=== PATIENT | male | born 1935 | race Caucasian/White ===

== ENCOUNTER → 2016-10-04 | Outpatient (CLI) | payer OTHER, MEDICARE ==
[~2016-10-04] MED LIST: ATOR-24 PO; CALCTAB5 PO; FLM4 PO; MULT-506 PO; NRV5 PO; OMG3 PO; PLV75 PO
== END | disposition home or self-care (01) ==
LOC: C.LABPVFM 11:31
PROVIDERS: ATTEND Urology
DX: C61 Malignant neoplasm of prostate (principal)

== ENCOUNTER → 2016-12-19 | Outpatient (CLI) | payer OTHER, MEDICARE ==
[2016-12-20 06:24] LABS: ESTIMATED AVERAGE GLUCOSE 134 mg/dl; HA1C FLAG Normal (Normal)
== END | disposition home or self-care (01) ==
LOC: C.LABPVFM 11:34
PROVIDERS: ATTEND Family Medicine
DX: I12.9 Hypertensive chronic kidney disease with stage 1 through stage 4 chronic kidney disease, or unspecified chronic kidney disease (principal); E78.5 Hyperlipidemia, unspecified; E83.42 Hypomagnesemia; I71.9 Aortic aneurysm of unspecified site, without rupture; N18.3 Chronic kidney disease, stage 3 (moderate); E11.22 Type 2 diabetes mellitus with diabetic chronic kidney disease

== ENCOUNTER → 2017-01-31 | Outpatient (CLI) | payer OTHER, MEDICARE ==
[2017-01-31 12:30] LABS: URINE APPEARANCE CLEAR (CLEAR); URINE BILIRUBIN NEG (NEG); URINE COLOR YELLOW; URINE NITRITE NEG (NEG); URINE SPECIFIC GRAVITY 1.018 (1.000-1.030); UROBILINOGEN NEG (NEG)
[2017-01-31 12:42] LABS: MANUAL MICROSCOPIC REQUIRED? NO; REVIEW REQ? NO
[2017-01-31 13:07] LABS: BLOOD UREA NITROGEN 29 mg/dl (7-18); BUN/CREATININE RATIO 19.3 (10-20); CARBON DIOXIDE 27 mmol/L (21-32); CHLORIDE 106 mmol/L (98-107); GLUCOSE 77 mg/dl (70-99); PHOSPHORUS 3.4 mg/dl (2.5-4.9); POTASSIUM 3.9 mmol/L (3.5-5.1); SODIUM 141 mmol/L (136-145)
[2017-01-31 13:08] LABS: CALCIUM 8.8 mg/dl (8.5-10.1)
[2017-01-31 14:00] LABS: CHOLESTEROL/HDL RATIO 3.3
== END | disposition home or self-care (01) ==
LOC: C.LABPVFM 10:34
PROVIDERS: ATTEND Internal Medicine Nephrology
DX: N18.3 Chronic kidney disease, stage 3 (moderate) (principal); I71.9 Aortic aneurysm of unspecified site, without rupture; E11.29 Type 2 diabetes mellitus with other diabetic kidney complication; E78.5 Hyperlipidemia, unspecified; I12.9 Hypertensive chronic kidney disease with stage 1 through stage 4 chronic kidney disease, or unspecified chronic kidney disease; E83.42 Hypomagnesemia

== ENCOUNTER → 2017-05-22 | Outpatient (CLI) | payer OTHER, MEDICARE ==
[2017-05-22 18:16] LABS: HEMATOCRIT 39.2 % (42-52)
[2017-05-22 18:34] LABS: BLOOD UREA NITROGEN 28 mg/dl (7-18); BUN/CREATININE RATIO 14.9 (10-20); CALCIUM 8.6 mg/dl (8.5-10.1); CARBON DIOXIDE 26 mmol/L (21-32); CHLORIDE 102 mmol/L (98-107); GLUCOSE 99 mg/dl (70-99); POTASSIUM 3.6 mmol/L (3.5-5.1); SODIUM 137 mmol/L (136-145)
[2017-05-22 18:35] LABS: PHOSPHORUS 3.7 mg/dl (2.5-4.9)
[2017-05-22 18:44] LABS: THYROID STIMULATING HORMONE 0.659 uIu/ml (0.300-4.500)
[2017-05-23 06:03] LABS: ESTIMATED AVERAGE GLUCOSE 131 mg/dl; HA1C FLAG Normal (Normal)
--- NOTE | 2017-05-29 09:46 | CODING QUERY MEDICAL NECESSITY ---
SUPPORTING DIAGNOSIS NEEDED Dr. Mendoza, A supporting diagnosis is required for the test/procedure performed on this patient in order for us to be reimbursed by the patient's insurance. Please provide a supporting diagnosis for the following test/procedure listed below next to the test name along with your signature. *If there is no additional diagnosis for this patient that would support the following test/procedure please document that below next to the test/procedure. Test(s)/Procedure(s) that require a supporting diagnosis: * ([id number]) B12 VITAMIN LEVEL DIAGNOSIS: DATE OF SERVICE: 05/22/17 Provider Signature: Date: Thank you Mikey [facility] Information Management Once completed, please kindly fax back to [phone] For questions please call [phone]
== END | disposition home or self-care (01) ==
LOC: C.LABPVFM 14:15
PROVIDERS: ATTEND Internal Medicine Nephrology
DX: I12.9 Hypertensive chronic kidney disease with stage 1 through stage 4 chronic kidney disease, or unspecified chronic kidney disease (principal); N18.3 Chronic kidney disease, stage 3 (moderate); E11.29 Type 2 diabetes mellitus with other diabetic kidney complication; N28.9 Disorder of kidney and ureter, unspecified

== ENCOUNTER → 2017-05-24 | Outpatient (CLI) | payer OTHER, MEDICARE ==
[2017-05-24 15:08] LABS: URINE APPEARANCE CLEAR (CLEAR); URINE BILIRUBIN NEG (NEG); URINE COLOR YELLOW; URINE NITRITE NEG (NEG); URINE SPECIFIC GRAVITY 1.017 (1.000-1.030); UROBILINOGEN NEG (NEG); ZZUR CULT IF INDIC CLEAN CATCH NO
[2017-05-24 15:16] LABS: MANUAL MICROSCOPIC REQUIRED? NO; REVIEW REQ? NO
== END | disposition home or self-care (01) ==
LOC: C.LAB1850 13:45
PROVIDERS: ATTEND Internal Medicine Nephrology
DX: N17.9 Acute kidney failure, unspecified (principal); N18.3 Chronic kidney disease, stage 3 (moderate)

== ENCOUNTER → 2017-05-29 | Outpatient (CLI) | payer OTHER, MEDICARE ==
[2017-05-29 17:54] LABS: BLOOD UREA NITROGEN 36 mg/dl (7-18); BUN/CREATININE RATIO 19.1 (10-20); CALCIUM 8.5 mg/dl (8.5-10.1); CARBON DIOXIDE 24 mmol/L (21-32); CHLORIDE 108 mmol/L (98-107); GLUCOSE 79 mg/dl (70-99); POTASSIUM 4.2 mmol/L (3.5-5.1); SODIUM 140 mmol/L (136-145)
== END | disposition home or self-care (01) ==
LOC: C.LABPVFM 12:36
PROVIDERS: ATTEND Internal Medicine Nephrology
DX: N17.9 Acute kidney failure, unspecified (principal)

== ENCOUNTER → 2017-08-08 | Outpatient (CLI) | payer OTHER, MEDICARE ==
[2017-08-08 18:47] LABS: BLOOD UREA NITROGEN 28 mg/dl (7-18); BUN/CREATININE RATIO 19.9 (10-20); CALCIUM 8.7 mg/dl (8.5-10.1); CARBON DIOXIDE 26 mmol/L (21-32); CHLORIDE 106 mmol/L (98-107); CREATININE 1.41 mg/dl (0.60-1.40); GLUCOSE 93 mg/dl (70-99); PHOSPHORUS 3.3 mg/dl (2.5-4.9); POTASSIUM 4.1 mmol/L (3.5-5.1); SODIUM 139 mmol/L (136-145)
== END | disposition home or self-care (01) ==
LOC: C.LABPVFM 11:14
PROVIDERS: ATTEND Internal Medicine Nephrology
DX: N18.3 Chronic kidney disease, stage 3 (moderate) (principal)

== ENCOUNTER → 2017-09-06 | Outpatient (CLI) | payer OTHER, MEDICARE ==
--- NOTE | 2017-09-06 09:02 | DIAGNOSTIC IMAGING REPORT ---
ULTRASOUND OF THE ABDOMINAL AORTA CLINICAL HISTORY: Abdominal aortic aneurysm. COMPARISON STUDY: Ultrasound of the abdominal aorta dated 08/16/2016. TECHNIQUE: Multiple persaud scale, color Doppler, and spectral Doppler sonograms of the abdominal aorta and iliac arteries are performed. Images are reviewed in the transverse and longitudinal planes. FINDINGS: There is moderate to advanced atherosclerotic calcification and irregularity noted throughout the abdominal aorta. The proximal abdominal aorta measures 3.0 x 3.0 cm (AP times transverse) and the mid abdominal aorta measures 2.4 x 2.4 cm. There is a fusiform aneurysm of the distal abdominal aorta which measures 4.1 x 4.2 cm. The right common iliac artery measures up to 1.6 cm and there is ectasia of the left common iliac artery which measures up to 2.0 cm. Normal flow and spectral Doppler waveforms are seen within the abdominal aorta. Velocities in the abdominal aorta measure up to 66 cm/s. IMPRESSION: There has been no significant change in the appearance of a fusiform aneurysm of the distal abdominal aorta which measures up to 4.1 x 4.2 cm (previously measured 4.1 x 3.7 cm) as compared to 08/16/2016. Electronically signed by: Pelon Murillo M.D. 09/06/2017 9:00 AM Dictated Date/Time: 09/06/2017 8:59 AM
== END | disposition home or self-care (01) ==
LOC: C.ULTR 08:23
PROVIDERS: ATTEND Family Medicine
DX: I71.9 Aortic aneurysm of unspecified site, without rupture (principal)

== ENCOUNTER 2017-11-22 11:08 | Emergency (ER) | payer OTHER, MEDICARE ==
[~2017-11-22] VITALS: Ht 172.7 cm; Wt 102.1 kg
[2017-11-22 11:19] VITALS: TEMP 36.9; Ht 172.7 cm; Wt 102.1 kg
--- NOTE | 2017-11-22 12:04 | EMERGENCY ROOM VISIT NOTE ---
History Report prepared by Amalia: Raulito Robin Under the Supervision of: Dr. Justina Go D.O. First contact with patient: 11:47 Chief Complaint: LEG PAIN,LEG INJURY Stated Complaint: RIGHT LEG PAIN History of Present Illness The patient is an 82 year old male who presents to the Emergency Room with complaints of worsening intermittent right groin pain that started 3 to 4 days ago. He states that the pain has been getting gradually worse and is sharp, and he has been having difficulty lifting his right leg. He notes that moving his right leg brings on the pain. The patient states that he does not feel a bulge in the groin area. He says that he could not sleep last night due to the pain, and has not been taking any medications for the pain. The patient states that there was no known injury to the area. He notes no history of a hernia, and has never had anything like this pain before. The patient states that he still has all his major abdominal organs. He notes no recent medication changes. He denies any fevers, chills, back pain, nausea, recent cough, cold symptoms, appetite changes, abdominal pain, testicle pain, scrotal swelling, bowel movement changes, or urinary symptoms. He also denies any recent changes to his activity. Source of History: patient Onset: 3 to 4 days ago Position: other (groin - right) Quality: sharp, other (pain) Timing: intermittent, worsening Modifying Factors (Worsening): movement Associated Symptoms: No fevers, No chills, No cough (or cold symptoms), No nausea, No abdominal pain, No urinary symptoms (or bowel movement changes) Note: Difficulty raising right leg. Denies appetite changes, scrotal swelling, testicle pain. Review of Systems See HPI for pertinent positives & negatives. A total of 10 systems reviewed and were otherwise negative. Past Medical & Surgical Medical Problems: (1) Acute renal failure (2) Diabetes (3) Diplopia (4) HLD (hyperlipidemia) (5) HTN (hypertension) Surgical Problems: (1) H/O angioplasty Family History Patient reports no known family medical history. Social History Smoking Status: Former Smoker Alcohol Use: none Drug Use: none Marital Status: Housing Status: lives with significant other Occupation Status: retired Current/Historical Medications Scheduled Amlodipine Besylate (Amlodipine Besylate), 5 MG PO DAILY Atorvastatin (Lipitor), 40 MG PO DAILY Clopidogrel (Plavix), 75 MG PO DAILY Fish Oil ([place]-3), 1 CAP PO DAILY Fosinopril Sodium (Fosinopril Sodium), 10 MG PO DAILY Insulin Detemir (Levemir Flextouch), 50 UNITS SC QPM Insulin Lispro (Human) (Humalog Kwikpen), 20-25 UNITS SC WM Multivitamin (Multivitamin), 1 TAB PO DAILY Tamsulosin HCl (Tamsulosin HCl), 0.4 MG PO DAILY Allergies Coded Allergies: No Known Allergies (Unverified , 10/14/15) Physical Exam Vital Signs Date Time Temp Pulse Resp B/P (MAP) Pulse Ox O2 Delivery O2 Flow Rate FiO2 11/22/17 16:16 82 20 132/78 99 11/22/17 14:15 83 18 168/83 96 Room Air 11/22/17 13:15 86 20 168/83 97 Room Air 11/22/17 11:19 36.9 85 20 123/78 96 Room Air Physical Exam GENERAL: alert, well appearing, well nourished, no distress, non-toxic EYE EXAM: normal conjunctiva, PERRL and EOM's grossly intact OROPHARYNX: no exudate, no erythema, lips, buccal mucosa, and tongue normal and mucous membranes are moist NECK: supple, no nuchal rigidity, no adenopathy, non-tender LUNGS: Clear to auscultation. Normal chest wall mechanics HEART: no murmurs, S1 normal and S2 normal ABDOMEN: obese, abdomen soft, non-tender, normo-active bowel sounds, no rebound or guarding. No obvious mass or hernia. No reproducible right lower quadrant or right inguinal tenderness. : Circumcised, bilaterally descended testicles, no scrotal edema. BACK: Back is symmetrical on inspection and there is no deformity, no midline tenderness, no CVA tenderness. SKIN: no rashes and no bruising UPPER EXTREMITIES: upper extremities are grossly normal. LOWER EXTREMITIES: No pitting edema. Decreased range of motion at right hip secondary to pain. NEURO EXAM: Normal sensorium, cranial nerves II-XII grossly intact, normal speech, no gross weakness of arms, no gross weakness of legs. Medical Decision & Procedures ER Provider Diagnostic Interpretation: CT:Per my review, radiologist interpretation. CT ABD/PELVIS IV CONTRAST ONLY CLINICAL HISTORY: Right lower quadrant abdominal pain COMPARISON STUDY: None. TECHNIQUE: Following the IV administration of 117 mL of Optiray-320, CT scan of the abdomen and pelvis was performed from the lung bases to the proximal femurs. Images are reviewed in the axial, sagittal, and coronal planes. IV contrast was administered without complication. A dose lowering technique was utilized adhering to the principles of ALARA. CT DOSE: 913.63 mGycm FINDINGS: Lower chest: There is a small hiatal hernia Liver: The contrast-enhanced liver is normal in size, contour, and attenuation. There is no intrahepatic biliary ductal dilatation. The hepatic veins and portal veins are patent. Gallbladder: Unremarkable. Spleen: Normal in size and attenuation. Pancreas: Unremarkable. Adrenal glands: There is mild left adrenal gland thickening. Kidneys: There are bilateral renal hypodensities measuring up to 1 cm. These likely represent cysts. There is left-sided hydronephrosis and hydroureter. There is an obstructing 6 mm calculus at the level the left ureterovesical junction. Bowel: There are no transition zones indicate bowel obstruction. There is mild fecal retention. There is no evidence of acute diverticulitis. There is no evidence of acute appendicitis. Peritoneum: There is no free air. There is no ascites. There is a small fat-containing umbilical hernia. There is a small fat-containing right inguinal hernia. Vasculature: There are moderately extensive atheromatous calcifications present. There is an infrarenal abdominal aortic aneurysm measuring 46 x 34 mm. There is an equivocal short segment dissection within the infrarenal abdominal aorta Adenopathy: None. Pelvic viscera: There is mild prostamegaly. Skeletal structures: No destructive osseous lesions are seen. IMPRESSION: 1. 6 mm obstructing calculus at the level of the left ureterovesical junction with secondary hydroureteronephrosis 2. No evidence of bowel obstruction. No evidence of free air 3. No evidence of acute appendicitis. No evidence of acute diverticulitis 4. Extensive atheromatous change. 46 x 34 mm infrarenal abdominal aortic aneurysm. 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 11/22/2017 2:17 PM Dictated Date/Time: 11/22/2017 2:12 PM Laboratory Results 11/22/17 12:25 Red Blood Count 4.25, Mean Corpuscular Volume 89.6, Mean Corpuscular Hemoglobin 29.6, Mean Corpuscular Hemoglobin Concent 33.1, Mean Platelet Volume 9.1, Neutrophils (%) (Auto) 77.8, Lymphocytes (%) (Auto) 11.7, Monocytes (%) (Auto) 7.3, Eosinophils (%) (Auto) 2.6, Basophils (%) (Auto) 0.3, Neutrophils # (Auto) 9.11, Lymphocytes # (Auto) 1.37, Monocytes # (Auto) 0.85, Eosinophils # (Auto) 0.31, Basophils # (Auto) 0.03 11/22/17 12:25 Test 11/22/17 12:25 11/22/17 14:12 White Blood Count 11.71 K/uL (4.8-10.8) Red Blood Count 4.25 M/uL (4.7-6.1) Hemoglobin 12.6 g/dL (14.0-18.0) Hematocrit 38.1 % (42-52) Mean Corpuscular Volume 89.6 fL (80-100) Mean Corpuscular Hemoglobin 29.6 pg (25-34) Mean Corpuscular Hemoglobin Concent 33.1 g/dl (32-36) Platelet Count 175 K/uL (130-400) Mean Platelet Volume 9.1 fL (7.4-10.4) Neutrophils (%) (Auto) 77.8 % Lymphocytes (%) (Auto) 11.7 % Monocytes (%) (Auto) 7.3 % Eosinophils (%) (Auto) 2.6 % Basophils (%) (Auto) 0.3 % Neutrophils # (Auto) 9.11 K/uL (1.4-6.5) Lymphocytes # (Auto) 1.37 K/uL (1.2-3.4) Monocytes # (Auto) 0.85 K/uL (0.11-0.59) Eosinophils # (Auto) 0.31 K/uL (0-0.5) Basophils # (Auto) 0.03 K/uL (0-0.2) RDW Standard Deviation 46.4 fL (36.4-46.3) RDW Coefficient of Variation 14.2 % (11.5-14.5) Immature Granulocyte % (Auto) 0.3 % Immature Granulocyte # (Auto) 0.04 K/uL (0.00-0.02) Prothrombin Time 10.5 SECONDS (9.0-12.0) Prothromb Time International Ratio 1.0 (0.9-1.1) Anion Gap 5.0 mmol/L (3-11) Est Creatinine Clear Calc Drug Dose 43.2 ml/min Estimated GFR () 47.2 Estimated GFR (Non- 40.7 BUN/Creatinine Ratio 16.6 (10-20) Calcium Level 8.7 mg/dl (8.5-10.1) Total Bilirubin 0.3 mg/dl (0.2-1) Aspartate Amino Transf (AST/SGOT) 12 U/L (15-37) Alanine Aminotransferase (ALT/SGPT) 20 U/L (12-78) Alkaline Phosphatase 124 U/L (45-117) Total Protein 7.2 gm/dl (6.4-8.2) Albumin 3.4 gm/dl (3.4-5.0) Globulin 3.8 gm/dl (2.5-4.0) Albumin/Globulin Ratio 0.9 (0.9-2) Urine Color YELLOW Urine Appearance CLEAR (CLEAR) Urine pH 5.0 (4.5-7.5) Urine Specific [place] 1.023 (1.000-1.030) Urine Protein NEG (NEG) Urine Glucose (UA) NEG (NEG) Urine Ketones NEG (NEG) Urine Occult Blood 3+ (NEG) Urine Nitrite NEG (NEG) Urine Bilirubin NEG (NEG) Urine Urobilinogen NEG (NEG) Urine Leukocyte Esterase NEG (NEG) Urine WBC (Auto) 1-5 /hpf (0-5) Urine RBC (Auto) >30 /hpf (0-4) Urine Hyaline Casts (Auto) 0 /lpf (0-5) Urine Epithelial Cells (Auto) 5-10 /lpf (0-5) Urine Bacteria (Auto) NEG (NEG) Laboratory results per my review. Medications Administered Medications (Trade) Dose Ordered Sig/Christa Route Start Time Stop Time Status Last Admin Dose Admin Sodium Chloride 500 ml @ 999 mls/hr Q31M STAT IV 11/22/17 12:13 11/22/17 12:43 DC 11/22/17 12:13 999 MLS/HR Acetaminophen (Tylenol Tab) 1,000 mg NOW STAT PO 11/22/17 15:21 11/22/17 15:22 DC 11/22/17 15:31 1,000 MG ECG Per My Interpretation Indication: weakness Rate (beats per minute): 75 Rhythm: normal sinus Findings: RBBB, no acute ischemic change, left axis deviation, no ectopy ED Course 1153: The patient was evaluated in room C9. A complete history and physical exam was performed. 1213: NSS 500 ml @ 999 mls/hr IV. 1220: I reviewed the past medical records of the patient, including a review of his PCP evaluation earlier today. The records were sent in. 1505: I reevaluated the patient and his pain is slightly less, but is still coming and going, and is still worse with movement. I updated him on the results. He says that he is aware of the AAA that was seen on CT and he is aware of that and that is old. 1521: Tylenol Tab 1000 mg PO. 1530: Flomax Cap 0.4 mg PO. 1600: Upon reevaluation, the patient is feeling better. I discussed the findings and the treatment plan with the patient. He verbalizes agreement and understanding. He was discharged home. Medical Decision Differential diagnoses includes but is not limited to gastritis, peptic ulcer disease, GERD, gallbladder disease, pancreatitis, small bowel obstruction, acute coronary syndrome, pericarditis, ischemic bowel, irritable bowel disease, irritable bowel syndrome, appendicitis, diverticulitis, malignancy, hernia, urinary tract infection, torsion, perforation, trauma, infectious. Pt well appearing here despite complaint. Labs and imaging reassuring. Pt stated AAA/dissection old and being followed as outpt. Discussed fat containing hernia on right possibly being the etiology of his pain. Also discussed left sided kidney stone. Pt without any left flank/back pain recently. States has some chronic back pain but no recent changes. No change in urine. Doubt occult infection. Labs and UA reassuring. Hematuria noted, likely from stone. Creatinine appears consistent with prior levels. Pt felt improved with tylenol here. Takes flomax daily already. Has a urologist, advised to f/u with him regarding stone and atypical presentation. DIscussed f/ u regarding fat containing hernia. Discussed sx to watch/return for, he and verbalized understanding. Pt well appearing at pr, ambulating with a steady gait. Pt offered additional pain medication and he declined. No n/v. I do not suspect other acute pathology at this time. Medication Reconcilliation Current Medication List: was personally reviewed by me Blood Pressure Screening Patient's blood pressure: Normal blood pressure Impression Primary Impression: Ureterolithiasis Additional Impressions: Hernia Right inguinal pain Scribe Attestation The scribe's documentation has been prepared under my direction and personally reviewed by me in its entirety. I confirm that the note above accurately reflects all work, treatment, procedures, and medical decision making performed by me. Departure Information Dispostion Home / Self-Care Referrals Johnson Blanc M.D. (PCP) Patient Instructions My [facility] Additional Instructions Please call and follow-up with your family doctor regarding the abdominal pain. Please also follow-up with your urologist regarding the kidney stone noted on the CAT scan. He may use Tylenol as needed for pain. Please continue taking her Flomax daily. If you have any worsening pain, are unable to walk, develop fevers or chills, dizziness, vomiting, or unable to urinate, noticed blood in your urine, noticed a change in your bowel movements, you have any other new concerns, please return the emergency room. Problem Qualifiers
[2017-11-22] MEDS ORDERED: SODIUM CHLORIDE 0.9% 500ML 500 ML IV STA (12:13)
[2017-11-22] MEDS ORDERED: OPTIRAY 320 IV PRN (12:30)
[2017-11-22] MEDS ORDERED: OMEG10007 PO (12:37)
[2017-11-22] MEDS ORDERED: INSU3INJ3 SC (12:37)
[2017-11-22] MEDS ORDERED: FLM4 PO (12:37)
[2017-11-22] MEDS ORDERED: INSU100I2 SC (12:37)
[2017-11-22] MEDS ORDERED: [UNRECOGNIZED DRUG - CODE] PO (12:37)
[2017-11-22] MEDS ORDERED: CLOP1TAB15 PO (12:37)
[2017-11-22] MEDS ORDERED: NRV/5 PO (12:37)
[2017-11-22 12:41] LABS: BASO % 0.3 %; BASO ABS # 0.03 K/uL (0-0.2); EOS % 2.6 %; EOS ABS # 0.31 K/uL (0-0.5); HEMATOCRIT 38.1 % (42-52); HEMOGLOBIN 12.6 g/dL (14.0-18.0); IG# 0.04 K/uL (0.00-0.02); LYMPH % 11.7 %; LYMPH ABS # 1.37 K/uL (1.2-3.4); MEAN CELL VOLUME 89.6 fL (80-100); MEAN CORPUSCULAR HEMOGLOBIN 29.6 pg (25-34); MEAN CORPUSCULAR HGB CONC 33.1 g/dl (32-36); MEAN PLATELET VOLUME 9.1 fL (7.4-10.4); MONO % 7.3 %; MONO ABS # 0.85 K/uL (0.11-0.59); NEUT % 77.8 %; NEUT ABS # 9.11 K/uL (1.4-6.5); PLATELET COUNT 175 K/uL (130-400); RED CELL DISTRIBUTION WIDTH CV 14.2 % (11.5-14.5); RED CELL DISTRIBUTION WIDTH SD 46.4 fL (36.4-46.3); WHITE BLOOD COUNT 11.71 K/uL (4.8-10.8)
[2017-11-22 13:00] LABS: ALBUMIN 3.4 gm/dl (3.4-5.0); CALCIUM 8.7 mg/dl (8.5-10.1); CREATININE 1.58 mg/dl (0.60-1.40); POTASSIUM 4.2 mmol/L (3.5-5.1)
[2017-11-22 13:03] LABS: TOTAL PROTEIN 7.2 gm/dl (6.4-8.2)
--- NOTE | 2017-11-22 14:19 | DIAGNOSTIC IMAGING REPORT ---
CT ABD/PELVIS IV CONTRAST ONLY CLINICAL HISTORY: Right lower quadrant abdominal pain COMPARISON STUDY: None. TECHNIQUE: Following the IV administration of 117 mL of Optiray-320, CT scan of the abdomen and pelvis was performed from the lung bases to the proximal femurs. Images are reviewed in the axial, sagittal, and coronal planes. IV contrast was administered without complication. A dose lowering technique was utilized adhering to the principles of ALARA. CT DOSE: 913.63 mGycm FINDINGS: Lower chest: There is a small hiatal hernia Liver: The contrast-enhanced liver is normal in size, contour, and attenuation. There is no intrahepatic biliary ductal dilatation. The hepatic veins and portal veins are patent. Gallbladder: Unremarkable. Spleen: Normal in size and attenuation. Pancreas: Unremarkable. Adrenal glands: There is mild left adrenal gland thickening. Kidneys: There are bilateral renal hypodensities measuring up to 1 cm. These likely represent cysts. There is left-sided hydronephrosis and hydroureter. There is an obstructing 6 mm calculus at the level the left ureterovesical junction. Bowel: There are no transition zones indicate bowel obstruction. There is mild fecal retention. There is no evidence of acute diverticulitis. There is no evidence of acute appendicitis. Peritoneum: There is no free air. There is no ascites. There is a small fat-containing umbilical hernia. There is a small fat-containing right inguinal hernia. Vasculature: There are moderately extensive atheromatous calcifications present. There is an infrarenal abdominal aortic aneurysm measuring 46 x 34 mm. There is an equivocal short segment dissection within the infrarenal abdominal aorta Adenopathy: None. Pelvic viscera: There is mild prostamegaly. Skeletal structures: No destructive osseous lesions are seen. IMPRESSION: 1. 6 mm obstructing calculus at the level of the left ureterovesical junction with secondary hydroureteronephrosis 2. No evidence of bowel obstruction. No evidence of free air 3. No evidence of acute appendicitis. No evidence of acute diverticulitis 4. Extensive atheromatous change. 46 x 34 mm infrarenal abdominal aortic aneurysm. 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 11/22/2017 2:17 PM Dictated Date/Time: 11/22/2017 2:12 PM
[2017-11-22] MEDS ORDERED: ACETAMINOPHEN 500 MG TAB PO STA (15:21)
[2017-11-22] MEDS ORDERED: TAMSULOSIN HCL 0.4 MG CAP PO ONE (15:30)
[2017-11-22 16:16] VITALS: BP 132/78; PULSE 82; O2SAT 99
== END 2017-11-22 16:17 | disposition home or self-care (01) ==
LOC: C.EDB 11:12 → C.EDC 16:17
DX: R10.31 Right lower quadrant pain (principal); N20.1 Calculus of ureter; K44.9 Diaphragmatic hernia without obstruction or gangrene; N17.9 Acute kidney failure, unspecified; E11.9 Type 2 diabetes mellitus without complications; E78.5 Hyperlipidemia, unspecified; I10 Essential (primary) hypertension; Z87.891 Personal history of nicotine dependence; Z79.02 Long term (current) use of antithrombotics/antiplatelets; Z79.899 Other long term (current) drug therapy

== ENCOUNTER → 2018-01-08 | Outpatient (CLI) | payer OTHER, MEDICARE ==
[~2018-01-08] MED LIST changes: -CALCTAB5 PO; +CLOP1TAB15 PO; +INSU100I2 SC; +INSU3INJ3 SC; +NRV/5 PO; -NRV5 PO; +OMEG10007 PO; -OMG3 PO; -PLV75 PO; +[UNRECOGNIZED DRUG - CODE] PO
--- NOTE | 2018-01-08 16:55 | DIAGNOSTIC IMAGING REPORT ---
R HIP UNILATERAL 2 VIEWS, PELVIS 1 OR 2 VIEW ROUTINE CLINICAL HISTORY: Right lower EXTREMITY WEAKNESS, ACUTE LOW BACK PAIN COMPARISON STUDY: None. FINDINGS: No fracture or dislocation within the pelvis or hips. The sacrum appears intact. Vascular calcifications are noted. Cartilage spaces are maintained for age. Moderate to large amount of well-formed stool within the colon. Aneurysmal dilatation of the infrarenal abdominal aorta measuring 4.6 cm in diameter. IMPRESSION: 1. No fracture or dislocation within the pelvis or hips. 2. A 4.6 cm infrarenal abdominal aortic aneurysm. Electronically signed by: Jersey Goldberg M.D. 01/08/2018 4:54 PM Dictated Date/Time: 01/08/2018 4:45 PM
--- NOTE | 2018-01-08 17:12 | DIAGNOSTIC IMAGING REPORT ---
L-SPINE MIN 4 VIEWS ROUTINE CLINICAL HISTORY: 82 years-old Male presenting with ACUTE LOW BACK PAIN, FOOT DROP, ABSENT ANKLE DORSAL FLEXION. TECHNIQUE: Frontal, bilateral oblique, lateral, and coned in lateral views of the lumbar spine were obtained. COMPARISON: CT of the abdomen and pelvis from 11/22/2017. FINDINGS: No scoliosis. Trace anterolisthesis of L4 on L5 and trace anterolisthesis of L5 on S1. Otherwise vertebral bodies maintain normal height and alignment. Mild endplate concavity is at several levels without convincing evidence of a compression deformity. Mild multilevel osteophytosis. Intervertebral disc heights preserved. No radiographic evidence of osseous neural foraminal narrowing. Redemonstration of the heavily calcified abdominal aortic aneurysm at the level of L4. The apparent diameter may be affected by magnification. IMPRESSION: 1. No radiographic evidence of acute osseous injury. 2. Mild degenerative changes without radiographic evidence of osseous neural foraminal narrowing. 3. Abdominal aortic aneurysm. The apparent diameter is likely affected by magnification. Electronically signed by: Wilmer Tolliver M.D. 01/08/2018 5:11 PM Dictated Date/Time: 01/08/2018 5:06 PM
== END | disposition home or self-care (01) ==
LOC: C.RADPV 16:18
PROVIDERS: ATTEND Nurse Practitioner
DX: M47.9 Spondylosis, unspecified (principal); I71.4 Abdominal aortic aneurysm, without rupture; M21.379 Foot drop, unspecified foot

== ENCOUNTER → 2018-01-11 | Outpatient (CLI) | payer OTHER, MEDICARE ==
--- NOTE | 2018-01-11 16:30 | DIAGNOSTIC IMAGING REPORT ---
MRI OF THE LUMBAR SPINE WITHOUT IV CONTRAST CLINICAL HISTORY: Low back pain. Right lower extremity radiculopathy. COMPARISON STUDY: Radiographs of the lumbar spine dated 01/08/2018. Abdominal CT dated 11/22/2017. TECHNIQUE: MRI of the lumbar spine is performed utilizing various T1 and T2-weighted sequences in the axial and sagittal planes. IV contrast was not administered for this examination. FINDINGS: Lumbar spine: Vertebral body height is maintained throughout the lumbar spine. There is minimal anterolisthesis at L4-L5. Alignment is otherwise preserved. No destructive bony lesion is seen. Tiny hemangiomas are seen in the bodies of T12 and L1. The transverse and spinous processes appear intact. There is no evidence of spondylolysis. Intervertebral discs: There is degenerative disc desiccation seen throughout the lumbar spine. No significant loss of height is identified. Paraspinal cord: The visualized spinal cord is normal in morphology and signal intensity. The conus medullaris terminates at the level of L1. The nerve roots of the cauda equina are normal in morphology. L1-L2: Unremarkable. L2-L3: Unremarkable. L3-L4: There is a tiny posterior disc bulge with annular fissure. Mild facet arthropathy is of no consequence. The central canal and neural foramina are widely patent. L4-L5: There is a posterior disc bulge. In conjunction with hypertrophy of the ligamentum flavum there is minimal acquired compromise of the central canal with a minimum AP diameter of 10 mm. There is bilateral subarticular stenosis, right greater than left. The disc bulge abuts the exiting right L4 nerve root as well as the transiting bilateral nerve roots. Bulky facet arthropathy causes mild left greater than right neural foraminal stenosis. Facet arthropathy also impinges on the posterior aspect of the thecal sac bilaterally. L5-S1: There is a small posterior disc bulge eccentric to the left. This causes severe left-sided subarticular stenosis and impinges on the exiting left L5 and the transiting bilateral S1 nerve roots. Facet arthropathy causes moderate left and mild right neural foraminal stenosis. There is no significant acquired compromise of the central canal. Sacrum: The visualized sacrum is normal in morphology and signal intensity. Soft tissues: There is fatty atrophy of the paraspinous musculature. The partially imaged kidneys demonstrate cortical atrophy. There is a small aneurysm of the distal abdominal aorta which is only partially visualized. This is better characterized on the 11/22/[address] The bladder wall is thickened and trabeculated consistent with chronic outlet obstruction. IMPRESSION: 1. There is no large disc herniation or high-grade central canal stenosis. 2. Lumbosacral spondylosis as above, greatest at L4-L5 and L5-S1. See discussion for detailed level by level analysis. 3. No destructive bony lesion is seen. 4. A small infrarenal abdominal aortic aneurysm is partially visualized and is better characterized on the 11/22/[address] Dictated: 01/11/2018 3:56 PM Transcribed: 01/11/2018 4:29 PM [facility] Electronically signed by: Pelon Murillo M.D. 01/11/2018 4:33 PM Dictated Date/Time: 01/11/2018 3:56 PM
== END | disposition home or self-care (01) ==
LOC: C.MRI 14:42
PROVIDERS: ATTEND Nurse Practitioner
DX: M47.817 Spondylosis without myelopathy or radiculopathy, lumbosacral region (principal); R29.898 Other symptoms and signs involving the musculoskeletal system; R10.31 Right lower quadrant pain; M21.379 Foot drop, unspecified foot; I71.4 Abdominal aortic aneurysm, without rupture

== ENCOUNTER → 2018-03-27 | Outpatient (CLI) | payer OTHER, MEDICARE ==
--- NOTE | 2018-03-27 12:58 | DIAGNOSTIC IMAGING REPORT ---
KUB CLINICAL HISTORY: N20.0 Nephrolithiasis COMPARISON STUDY: CT scan dated 11/22/2017 FINDINGS: There is calcification within the abdominal aorta which measures 4.6 cm uncorrected for magnification. There is a 3 mm lower pole left renal calculus. There is mild fecal retention. IMPRESSION: 1. Abdominal aortic aneurysm 2. Left-sided nephrolithiasis 3. Fecal retention Electronically signed by: Juan Antonio Langley M.D. 03/27/2018 12:57 PM Dictated Date/Time: 03/27/2018 12:56 PM
--- NOTE | 2018-03-27 14:10 | DIAGNOSTIC IMAGING REPORT ---
RENAL ULTRASOUND HISTORY: N20.0 Nephrolithiasis COMPARISON: Abdomen and pelvis CT 11/22/2017. FINDINGS: Right kidney: 11.0 cm. No hydronephrosis. Normal corticomedullary differentiation and moderate cortical thinning. Left kidney: 10.9 cm. No hydronephrosis. Normal corticomedullary differentiation and mild to moderate cortical thinning. Bladder: No bladder wall thickening. A right ureteral jet was identified. There is a 7 mm stone at the left ureterovesical junction, unchanged. However, the left ureteral jet persists. IMPRESSION: 1. No hydronephrosis. 2. No change in the nonobstructing 7 mm stone within the left ureterovesical junction. Electronically signed by: Jersey Goldberg M.D. 03/27/2018 2:09 PM Dictated Date/Time: 03/27/2018 2:07 PM
== END | disposition home or self-care (01) ==
LOC: C.ULTR 12:25
PROVIDERS: ATTEND Urology
DX: N20.0 Calculus of kidney (principal)

== ENCOUNTER 2023-03-10 15:20 | Inpatient (IN) ==
--- NOTE | 2023-03-10 15:57 | Emergency Department Note ---
History of Present Illness General Chief complaint: Stroke/CVA Symptoms Stated complaint: FALL, REF BY DOC;DROOPING IN FACE, OFF BALANCE Time Seen by Provider: 03/10/23 15:47 History of Present Illness 87-year-old male presents emergency department with his reportedly had a fall on Monday he did not hit his head and since then he has been dragging his left foot and has a left facial droop. Patient did go to Dr. Harris's office today and was sent for further evaluation of stroke. Patient's had a prior stroke and he describes it as mini strokes in the past. Patient does not know whether he is on any blood thinners currently. Patient denies headache slurred speech he states he is able to eat however has been dragging his left leg and using a walker. There are no other complaints such as chest pain shortness of breath abdominal pain nausea vomiting or back pain. There are no other mitigating or a lleviating factors Home Medications Medication Instructions Recorded Confirmed Type blood-glucose meter ([employer] #1 ea 03/13/19 03/10/23 History Ultra2 Meter) calcium carbonate 600 mg calcium 600 mg PO DAILY 03/13/19 03/10/23 History (1,500 mg) tablet (Calcium) syringe with needle 3 mL 25 x 5/8" #6 ea 12/03/21 03/10/23 Rx (BD Luer-Frank Syringe) insulin lispro 100 unit/mL 20 - 25 unit (0.2 - 0.25 mL) 05/10/22 03/10/23 Rx subcutaneous pen (Humalog KwikPen subcut TID 90 days #90 mL (U-100) Insulin) amlodipine 2.5 mg tablet 2.5 mg PO DAILY #90 tabs 07/11/22 03/10/23 Rx clopidogrel 75 mg tablet 75 mg PO DAILY #90 tabs 07/11/22 03/10/23 Rx cholecalciferol (vitamin D3) 125 125 mcg PO DAILY 09/29/22 03/10/23 History mcg (5,000 unit) capsule blood sugar diagnostic #200 ea 10/03/22 03/10/23 Rx pen needle, diabetic 31 gauge x #200 ea 10/03/22 03/10/23 Rx 5/16" (BD Ultra-Fine Short Pen Needle) lancets 30 gauge ([employer] Stixuch Deljhonny #100 ea 10/04/22 03/10/23 Rx Lancets) tamsulosin 0.4 mg capsule 0.4 mg PO DAILY #100 caps 10/05/22 03/10/23 Rx carbidopa 25 mg-levodopa 100 mg 1 tab PO TID #90 tabs 11/11/22 03/10/23 Rx tablet (Sinemet) fosinopril 10 mg tablet 5 mg PO DAILY #45 tabs 01/13/23 03/10/23 Rx atorvastatin 40 mg tablet 40 mg PO DAILY #90 tabs 01/25/23 03/10/23 Rx insulin detemir U-100 100 unit/mL 50 unit subcut HS 03/10/23 03/10/23 History (3 mL) subcutaneous pen Allergies Allergy/AdvReac Type Severity Reaction Status Date / Time No Known Drug Allergies Allergy Unknown Verified 03/10/23 14:29 Past Med/Surg History Medical History Hematuria Stroke Type 2 diabetes mellitus with kidney complication, with long-term current use of insulin Surgical History History of cataract surgery History of intravascular stent placement Hx of excision of epidermal inclusion cyst (05/21/21) Excision right neck cyst in office 05/21/21 Dr. Locke Family History Family/Other Diabetes Hypertension Sister Kidney disease Other Cancer Denies family history of Ovarian cancer Prostate cancer Myocardial infarction Breast cancer Colorectal cancer Social History Smoking Status: Current every day smoker Tobacco Type: Smokeless Tobacco (Dip or Chew) Age Started Using Tobacco: 22; Age Quit Using Tobacco: 52; Second Hand Exposure: No; Do You Dip or Chew Tobacco: Yes; Hx Alcohol Use: No Hx Substance Use: No Preferred Language: Brazilian Communication Ability: Effective Blockman Required: No marital status: Current Living Situation: Spouse current occupational status: retired How many Children do You have: 0 Feels Safe at Home: Yes Childhood Exposure to Second-Hand Smoke: Yes Diet: regular caffeine: Yes Dental Care, Regularly: No Physical Activity Frequency: Does not Exercise Seatbelt Use: sometimes Sunscreen Use: No Review of Systems A total of 10 systems reviewed and were otherwise negative Cardiovascular: no chest pain Gastrointestinal: no abdominal pain Neurologic: + gait abnormality, + falls and + localized weakness; no headache(s) Physical Exam Vital Signs Vital Signs - 24 hr 03/10/23 15:24 03/10/23 16:36 03/10/23 15:32 Temperature 36.3 C L Temperature Source Temporal Artery Scan Pulse Rate 87 73 72 Pulse Rhythm Regular Respiratory Rate 18 16 Respiratory Effort / Characteristics Non-Labored Spontaneous Respiratory Depth Normal Respiratory Pattern Regular Blood Pressure 131/79 Blood Pressure Mean 96 Blood Pressure Position Sitting Pulse Oximetry 99 95 Oxygen Delivery Method Room Air Room Air Sepsis Recent Fever Within 48 Hours No Sepsis New/Unexplained Change in Mental Status N/A Sepsis Action Taken by Nursing No Action Required GENERAL: Patient is awake alert in no acute distress patient is resting comfortably and showing no signs of anxiety EYES: The conjunctivae are clear. The pupils are round and reactive. EARS, NOSE, MOUTH AND THROAT: The nose is without any evidence of any deformity. Mucous membranes are moist. Tongue is midline. Patient has a left-sided facial droop NECK: The neck is nontender and supple. RESPIRATORY: Normal respiratory effort is noted there is no evidence of wheezing rhonchi or rales CARDIOVASCULAR: Regular rate and rhythm noted there no murmurs rubs or gallops normal S1 normal S2. GASTROINTESTINAL: The abdomen is soft. Abdomen is nontender. BACK: No midline tenderness or or step-off noted range of motion in flexion extension as well as rotation no signs of muscle spasm noted MUSCULOSKELETAL/EXTREMITIES: There is no evidence of gross deformity full range of motion is noted in the hips and shoulders. SKIN: There is no obvious evidence of any rash. There are no petechiae, pallor or cyanosis noted. NEUROLOGIC: Patient is awake alert and oriented x3; patient has weakness in the left lower extremity when he lifts against gravity is unable to hold. Patient's NIH is a 4 GCS is 15 Course Reevaluation(s) Reevaluation #1: Patient is resting in no distress on repeat examination. Time: 17:13 Consultations Consultation #1: Case was discussed with Dr Burk at 1014 Time: 17:13 Medical Decision Making Medical Records Attestation: I reviewed the patient's medical records. Home Medications Current Medication List: was personally reviewed by me Laboratory Data Attestation: I reviewed the patient's lab results. Lab work interpreted by me is unremarkable 03/10/23 15:40 03/10/23 15:40 Lab Results 03/10/23 03/10/23 03/10/23 Range/Units 15:40 15:40 15:40 WBC 8.32 (4.8-10.8) K/ul RBC 4.23 L (4.70-6.10) M/uL Hgb 12.7 L (14.0-18.0) g/dl Hct 39.9 L (42.0-52.0) % MCV 94.3 (80.0-100.0) fL MCH 30.0 (25.0-34.0) pg MCHC 31.8 L (32.0-36.0) g/dL RDW Std Deviation 47.3 H (36.4-46.3) fL RDW Coeff of Josr 13.7 (11.5-14.5) % Plt Count 155 (130-400) K/uL MPV 9.8 (9.4-12.4) fL PT 11.3 (9.0-12.0) Seconds INR 1.0 (0.9-1.1) APTT 27.7 (21.0-31.0) Seconds PTT Ratio 1.0 Sodium 141 (136-145) mmol/L Potassium 4.2 (3.5-5.1) mmol/L Chloride 106 (98-107) mmol/L Carbon Dioxide 29 (21-32) mmol/L Anion Gap 6 (3-11) BUN 32 H (6-23) mg/dl Creatinine 1.30 (0.6-1.4) mg/dl Est Cr Clr Drug Dosing 44.8 ml/min Est GFR ( Amer) 57.7 ml/min Est GFR (Non-Af Amer) 49.8 ml/min BUN/Creatinine Ratio 24.6 H (10-20) Glucose 104 H (70-99(Fasting)) mg/dl Calcium 9.3 (8.6-10.3) mg/dl Magnesium 2.1 (1.7-2.4) mg/dl Total Bilirubin 0.4 (0.2-1.0) mg/dl AST 15 (13-39) U/L ALT 3 L (7-52) U/L Alkaline Phosphatase 88 (34-104) U/L Total Protein 7.4 (6.0-8.3) gm/dl Albumin 4.3 (3.4-5.0) gm/dl Globulin 3.1 (2.5-4.0) gm/dl Albumin/Globulin Ratio 1.4 (0.9-2) SARS-CoV-2, RNA, NAAT (NEGATIVE) 03/10/23 Range/Units 16:09 WBC (4.8-10.8) K/ul RBC (4.70-6.10) M/uL Hgb (14.0-18.0) g/dl Hct (42.0-52.0) % MCV (80.0-100.0) fL MCH (25.0-34.0) pg MCHC (32.0-36.0) g/dL RDW Std Deviation (36.4-46.3) fL RDW Coeff of Josr (11.5-14.5) % Plt Count (130-400) K/uL MPV (9.4-12.4) fL PT (9.0-12.0) Seconds INR (0.9-1.1) APTT (21.0-31.0) Seconds PTT Ratio Sodium (136-145) mmol/L Potassium (3.5-5.1) mmol/L Chloride (98-107) mmol/L Carbon Dioxide (21-32) mmol/L Anion Gap (3-11) BUN (6-23) mg/dl Creatinine (0.6-1.4) mg/dl Est Cr Clr Drug Dosing ml/min Est GFR ( Amer) ml/min Est GFR (Non-Af Amer) ml/min BUN/Creatinine Ratio (10-20) Glucose (70-99(Fasting)) mg/dl Calcium (8.6-10.3) mg/dl Magnesium (1.7-2.4) mg/dl Total Bilirubin (0.2-1.0) mg/dl AST (13-39) U/L ALT (7-52) U/L Alkaline Phosphatase (34-104) U/L Total Protein (6.0-8.3) gm/dl Albumin (3.4-5.0) gm/dl Globulin (2.5-4.0) gm/dl Albumin/Globulin Ratio (0.9-2) SARS-CoV-2, RNA, NAAT NEGATIVE (NEGATIVE) Imaging Data Attestation: I personally reviewed and interpreted this imaging study as follows: My Impression: Chest x-ray interpreted by me as negative for infiltrate CT brain interpreted by me is negative for intracranial hemorrhage Radiologist's Impression: Chest X-Ray 03/10/23 15:32 XR chest 1V portable HISTORY: Weakness. stroke alert COMPARISON: Chest 07/01/2019. FINDINGS: No pneumothorax. No pleural effusions. No focal lung consolidations to suggest a pneumonia. No evidence for pulmonary edema. The heart remains top normal in size. There are calcifications within the aortic knob. Degenerative changes again noted within the shoulders. IMPRESSION: No significant change compared to the prior study. No acute process. ACT 112: Negative or not required by law. Electronically signed by: Jersey Goldberg M.D. 03/10/2023 4:[address] 03/10/23 15:[address] DOSE: 625.80 mGy.cm HISTORY: Weakness. Left-sided facial injury. Neuro deficit, acute, stroke suspected TECHNIQUE: Multiaxial CT images of the head were performed without the use of intravenous contrast. Automated exposure control was utilized for this study. A dose lowering technique was utilized adhering to the principles of ALARA. Comparison: Head CT 10/14/2015. Findings: The paranasal sinuses and mastoid air cells are clear. The calvarium and skull base are intact. There is no mass, hematoma, midline shift, acute infarct. White matter hypodensity is nonspecific but suggestive of microvascular ischemic change. The ventricles and sulci demonstrate mild age-related involutional changes. Impression: No acute intracranial abnormality. Atrophy and microvascular ischemic changes. ACT 112: Negative or not required by law. Electronically signed by: Jersey Goldberg M.D. 03/10/2023 4:11 PM ECG Data Attestation: I personally reviewed and interpreted this ECG as follows: Additional Comments: EKG interpreted by me normal sinus rhythm rate of 66 right bundle branch block left anterior hemiblock left axis deviation no obvious ST segment elevation or depression Telemetry was ordered by me, interpreted as normal sinus rhythm rate of 64 MDM Narrative Medical decision making differential diagnosis includes CVA, TIA, intracranial hemorrhage, electrolyte abnormality, neuropathy Plan is to check stroke protocol, patient is out of the for tPA at this time. External medical records were reviewed by me Independent history was provided to me by the patient's at bedside Patient has had symptoms greater than 5 days now, patient is out of the window for tPA, patient had a CT of the brain which is negative, patient will need a in inpatient work-up with neurology and likely MRI. Case was discussed with Dr. Burk for admission Impression & Plan Cerebrovascular accident Discharge Plan Visit Data Chief Complaint: Stroke/CVA Symptoms Stated Complaint: FALL, REF BY DOC;DROOPING IN FACE, OFF BALANCE ED Provider: Anil Wellington Discharge Problem: Cerebrovascular accident Patient Disposition: Admitted As Inpatient Forms Stand Alone Forms: My [facility] Prescriptions Prescriptions: No Action insulin lispro [Humalog KwikPen Insulin] 100 unit/mL insulin pen 20 - 25 unit SQ TID 90 Days Qty: 90 3RF clopidogrel 75 mg tablet 75 mg PO DAILY Qty: 90 3RF amlodipine 2.5 mg tablet 2.5 mg PO DAILY Qty: 90 3RF (DME) blood sugar diagnostic Strip See Dose Instructions .ROUTE .MEDSUPPLY Qty: 200 11RF Rx Instructions: USE ONE STRIP TO CHECK GLUCOSE 3 TIMES DAILY E11.9 (DME) pen needle, diabetic [BD Ultra-Fine Short Pen Needle] 31 gauge x 5/16" needle See Dose Instructions .ROUTE .MEDSUPPLY Qty: 200 3RF Rx Instructions: Use with insulin pen twice daily Dx:E11.9 (DME) lancets [OneTouch Delica Lancets] 30 gauge misc See Rx Instructions .Route Qty: 100 11RF Rx Instructions: Test three times daily carbidopa-levodopa [Sinemet] 25-100 mg tablet 1 tab PO TID Qty: 90 5RF fosinopril 10 mg tablet 5 mg PO DAILY Qty: 45 3RF atorvastatin 40 mg tablet 40 mg PO DAILY Qty: 90 3RF calcium carbonate [Calcium 600] 600 mg calcium (1,500 mg) tablet 600 mg PO DAILY (DME) blood-glucose meter [[employer] Stixuch Ultra2 Meter] misc See Dose Instructions .ROUTE .MEDSUPPLY Qty: 1 Rx Instructions: As directed tamsulosin 0.4 mg capsule 0.4 mg PO DAILY Qty: 100 3RF Rx Instructions: 30 minutes after supper (DME) BD Luer-Frank Syringe 3 mL 25 x 5/8" syringe See Rx Instructions .Route Qty: 6 0RF Rx Instructions: Use with Vitamin B12 injectable solution cholecalciferol (vitamin D3) 125 mcg (5,000 unit) capsule 125 mcg PO DAILY Rx Instructions: Take 5 / 7 days per week Levemir FlexTouch U-100 Insuln 100 unit/mL (3 mL) insulin pen 50 unit subcut HS Referrals Referrals: Keith Yung DO [Primary Care Provider] -
--- NOTE | 2023-03-10 16:12 | CT Scan Report ---
HEAD CT NONCONTRAST CT DOSE: 625.80 mGy.cm HISTORY: Weakness. Left-sided facial injury. Neuro deficit, acute, stroke suspected TECHNIQUE: Multiaxial CT images of the head were performed without the use of intravenous contrast. A utomated exposure control was utilized for this study. A dose lowering technique was utilized adheri ng to the principles of ALARA. Comparison: Head CT 10/14/2015. Findings: The paranasal sinuses and mastoid air cells are clear. The calvarium and skull base are int act. There is no mass, hematoma, midline shift, acute infarct. White matter hypodensity is nonspecifi c but suggestive of microvascular ischemic change. The ventricles and sulci demonstrate mild age-rela nba involutional changes. Impression: No acute intracranial abnormality. Atrophy and microvascular ischemic changes. ACT 112: Negative or not required by law. Electronically signed by: Jersey Goldberg M.D. 03/10/2023 4:11 PM
[2023-03-10 16:30] LABS: Hematocrit (blood only) 39.9 % (42.0-52.0); Hemoglobin 12.7 g/dl (14.0-18.0); Mean Corpuscular Hgb Conc 31.8 g/dL (32.0-36.0); Mean Corpuscular Volume 94.3 fL (80.0-100.0); Mean Platelet Volume 9.8 fL (9.4-12.4); Platelet Count 155 K/uL (130-400); RDW Coefficient of Variation 13.7 % (11.5-14.5); RDW Standard Deviation 47.3 fL (36.4-46.3); Red Blood Count 4.23 M/uL (4.70-6.10); White Blood Count 8.32 K/ul (4.8-10.8)
--- NOTE | 2023-03-10 16:38 | XRay Report ---
XR chest 1V portable HISTORY: Weakness. stroke alert COMPARISON: Chest 07/01/2019. FINDINGS: No pneumothorax. No pleural effusions. No focal lung consolidations to suggest a pneumonia. No evidence for pulmonary edema. The heart remains top normal in size. There are calcifications with in the aortic knob. Degenerative changes again noted within the shoulders. IMPRESSION: No significant change compared to the prior study. No acute process. ACT 112: Negative or not required by law. Electronically signed by: Jersey Goldberg M.D. 03/10/2023 4:36 PM
[2023-03-10 16:43] LABS: Albumin Globulin Ratio 1.4 (0.9-2); Albumin Level 4.3 gm/dl (3.4-5.0); BUN Creatinine Ratio 24.6 (10-20); Bilirubin,Total 0.4 mg/dl (0.2-1.0); Calcium 9.3 mg/dl (8.6-10.3); Creatinine Clr Calc Pharmacy 44.8 ml/min; Est GFR (African American) 57.7 ml/min; Est GFR (Non-African American) 49.8 ml/min; Globulin 3.1 gm/dl (2.5-4.0); Magnesium 2.1 mg/dl (1.7-2.4); Potassium 4.2 mmol/L (3.5-5.1); Total Protein 7.4 gm/dl (6.0-8.3)
[2023-03-10 16:55] LABS: Partial Thromboplastin Time 27.7 Seconds (21.0-31.0); Prothrombin Time 11.3 Seconds (9.0-12.0)
--- NOTE | 2023-03-10 17:53 | History & Physical Report ---
Date of Service March 10, 2023 Assessment & Plan (1) Cerebrovascular accident: Plan: Concern for CVA - symptoms started Monday, would be out of the TPA window - NIH Stroke Scale= 5 - Head CT negative, Brain MRI ordered - Echo with bubble study - PT/OT consult - continue Plavix, will aspirin load with 324mg followed by 81mg daily - already on 40mg atorvastatin - neurology consulted HTN - he is out of the window for permissive HTN - plan to continue his home medications; amlodipine, fosinopril DM2 - Home regimen 50 units Levemir HS, Humalog 20-25 TID - last hemoglobin a1c= 6.4 08/2022-> will repeat with morning labs - Plan to start on 15 units NovoLog BID with SSI correction factor of 20 with a carb ratio of 7 based off insulin calculator HLD - continue statin - lipid panel with morning labs Parkinson's Disease - Continue carbidopa- levodopa Vitamin D Def - continue supplementation BPH - continue tamsulosin Diet: Regular after dysphagia screening VTE prophylaxis: Lovenox Dipso: Med Surg with Tele (2) Facial droop: (3) Left-sided weakness: (4) Parkinsonism: (5) Stage 3b chronic kidney disease: (6) Type 2 DM with CKD stage 3 and hypertension: (7) Dyslipidemia: History of Present Illness Primary Care Provider: Keith Yung DO 87 year old male with a past medical history of DM2, HTN, HLD, CKD stage III, Hyperparathyroidism, CVA, Parkinsonism, AAA, CAD s/p PCI refereed but neurologist after appointment this afternoon. On Tuesday 03/06 he fell while cooking breakfast. Since that he has been dragging his left foot and has had a left sided facial droop. Has been using a walker. Denies headache, slurred speech, neck pain, chest pain, dyspnea. History of prior stroke a few years ago, on Plavix. ED Work-up significant for: CBC, CMP unremarkable. CXR unremarkable. Head CT- without acute intracranial abnormality. Atrophy and microvascular ischemic changes. Allergies Allergy/AdvReac Type Severity Reaction Status Date / Time No Known Drug Allergies Allergy Unknown Verified 03/10/23 14:29 Home Medications Medication Instructions Recorded Confirmed Type blood-glucose meter ([employer] #1 ea 03/13/19 03/10/23 History Ultra2 Meter) calcium carbonate 600 mg calcium 600 mg PO DAILY 03/13/19 03/10/23 History (1,500 mg) tablet (Calcium) syringe with needle 3 mL 25 x 5/8" #6 ea 12/03/21 03/10/23 Rx (BD Luer-Frnak Syringe) insulin lispro 100 unit/mL 20 - 25 unit (0.2 - 0.25 mL) 05/10/22 03/10/23 Rx subcutaneous pen (Humalog KwikPen subcut TID 90 days #90 mL (U-100) Insulin) amlodipine 2.5 mg tablet 2.5 mg PO DAILY #90 tabs 07/11/22 03/10/23 Rx clopidogrel 75 mg tablet 75 mg PO DAILY #90 tabs 07/11/22 03/10/23 Rx cholecalciferol (vitamin D3) 125 125 mcg PO DAILY 09/29/22 03/10/23 History mcg (5,000 unit) capsule blood sugar diagnostic #200 ea 10/03/22 03/10/23 Rx pen needle, diabetic 31 gauge x #200 ea 10/03/22 03/10/23 Rx 5/16" (BD Ultra-Fine Short Pen Needle) lancets 30 gauge (OneTouch Delica #100 ea 10/04/22 03/10/23 Rx Lancets) tamsulosin 0.4 mg capsule 0.4 mg PO DAILY #100 caps 10/05/22 03/10/23 Rx carbidopa 25 mg-levodopa 100 mg 1 tab PO TID #90 tabs 11/11/22 03/10/23 Rx tablet (Sinemet) fosinopril 10 mg tablet 5 mg PO DAILY #45 tabs 01/13/23 03/10/23 Rx atorvastatin 40 mg tablet 40 mg PO DAILY #90 tabs 01/25/23 03/10/23 Rx insulin detemir U-100 100 unit/mL 50 unit subcut HS 03/10/23 03/10/23 History (3 mL) subcutaneous pen Past Med/Surg History Medical History Hematuria Stroke Type 2 diabetes mellitus with kidney complication, with long-term current use of insulin Surgical History History of cataract surgery History of intravascular stent placement Hx of excision of epidermal inclusion cyst (05/21/21) Excision right neck cyst in office 05/21/21 Dr. Locke Family History Family/Other Diabetes Hypertension Sister Kidney disease Other Cancer Denies family history of Ovarian cancer Prostate cancer Myocardial infarction Breast cancer Colorectal cancer Social History Smoking Status: Former smoker Tobacco Type: Smokeless Tobacco (Dip or Chew) Age Started Using Tobacco: 22; Age Quit Using Tobacco: 52; Smoking End Date: 30 years ago; Second Hand Exposure: No; Do You Dip or Chew Tobacco: Yes; Hx Alcohol Use: No Hx Substance Use: No Preferred Language: Upper Sorbian Communication Ability: Effective Environmental Property Assessor Required: No Beliefs That Will Affect Care: None marital status: Current Living Situation: Spouse Current Living Situation Comment: with current occupational status: retired How many Children do You have: 0 Other Information That Helps Us Care for You: No Feels Safe at Home: Yes Safety Concerns: Feels Safe At This Time Childhood Exposure to Second-Hand Smoke: Yes Diet: regular caffeine: Yes Dental Care, Regularly: No Physical Activity Frequency: Does not Exercise Seatbelt Use: sometimes Sunscreen Use: No Assistive Devices: Walker Review of Systems Review of Systems: As per above Physical Exam Physical Exam: Constitutional: well-appearing, no acute distress HEENT: NCAT, no conjunctival injection CV: regular rhythm, no murmur appreciated, extremities well-perfused, no LE edema Resp: CTABL, no wheezes/rales/rhonchi appreciated, no increased work of breathing GI: soft, nondistended, nontender, BS normoactive MSK: no gross deformities appreciated Skin: warm, dry, no rash appreciated Neurologic: normal touch/pain/proprioception and awake Speech / Cognition: normal speech Cranial Nerves: PERRL, EOM intact bilaterally, tongue midline, normal hearing, able to rotate head bilaterally and able to elevate shoulders bilaterally Left sided facial droop, strength left upper/lower extremity 4/5, right 5/5 Results & Data Results & Data Vital Signs (Past 12 Hours) Vital Signs Temp Pulse Resp BP Pulse Ox O2 Del Method 03/10/23 15:32 72 16 95 Room Air 03/10/23 16:36 73 03/10/23 15:24 36.3 C L 87 18 131/79 99 Room Air Supervising Physician Co-Signing Physician Notes I personally saw and examined the patient. I verified all walsh points and agree with resident physician Dr Yady Watson, with the following exceptions and/or additions: 87 year old male presents to the ER with left facial droop, left lower extremity weakness started on Monday. He denies pain in back or left leg. O/E HS RRR, no murmurs, Chest CTAB, mild left facial droop, PERRL, EOMI without diplopia, otherwise CN 2-> 12 intact, No pronator drift or upper extremity weakness on exam, LLE foot drop and hip flexion 3/5, RLE 5/5 throughout A/P Stroke-like symptoms - CT angio head/neck deferred pending MRI brain - if CVA present will defer carotid workup to Neurology. TTE. Consult neurology. Resident Activity Tracking Resident Involvement: Resident Care Provided Care Provided: Adult [facility] Medicine
--- NOTE | 2023-03-10 17:57 | Electrocardiogram Report ---
Test Reason : Blood Pressure : / mmHG Vent. Rate : 066 BPM Atrial Rate : 066 BPM P-R Int : 162 ms QRS Dur : 136 ms QT Int : 450 ms P-R-T Axes : 021 -54 -06 degrees QTc Int : 471 ms Normal sinus rhythm Right bundle branch block Left anterior fascicular block Bifascicular block Abnormal ECG When compared with ECG of 22-NOV-2017 12:39, No significant change was found Confirmed by Kailash Guidry ([id number]) on 03/10/2023 5:56:48 PM Referred By: Keith Yung Confirmed By:Nima Guidry
--- NOTE | 2023-03-10 20:09 | Magnetic Resonance Report ---
Exam(s): MRI HEAD Without Contrast EXAM: MR Head Without Intravenous Contrast CLINICAL HISTORY: Reason for exam: left sided weakness and facial droop. TECHNIQUE: Magnetic resonance images of the head/brain without intravenous contrast in multiple planes. COMPARISON: CT head on 03/10/2023. MRI brain on 11/05/2021. FINDINGS: Brain: Chronic small vessel ischemic disease. No hemorrhage. No restricted diffusion to suggest acute infarct. Ventricles: Prominence of the ventricles and sulci is likely secondary to cerebral volume loss. Bones/joints: Unremarkable. Sinuses: Unremarkable as visualized. No acute sinusitis. Mastoid air cells: Unremarkable as visualized. No mastoid effusion. Orbits: Bilateral lens implants. IMPRESSION: No restricted diffusion to suggest acute infarct. Electronically signed by: Gareth Hebert M.D. 03/10/23 20:08 PM
[2023-03-10] MEDS ORDERED: DEXTROSE 50% 50 ML SYRINGE IV PRN (21:19)
[2023-03-10] MEDS ORDERED: GLUCOSE 10 TAB/TUBE PO PRN (21:19)
[2023-03-10] MEDS ORDERED: PHARMACIST DISCHARGE MED REC CONSULT PRN (21:19)
[2023-03-10] MEDS ORDERED: GLUCAGON FOR INJ 1 MG VIAL SQ PRN (21:19)
[2023-03-10] MEDS ORDERED: ASPIRIN 81 MG CHEW PO ONE (21:19)
[2023-03-10] MEDS ORDERED: CARBOHYDRATES FOR HYPOGLYCEMIA PO PRN (21:19)
[2023-03-10] MEDS ORDERED: GLUCOSE 40% GEL 15 GM TUBE PO PRN (21:19)
[2023-03-10] MEDS ORDERED: LANTUS PER UNIT CHARGE SQ ONE (23:31)
[2023-03-10] MEDS: LANTUS PER UNIT CHARGE SQ SCH (23:32)
[2023-03-10] MEDS ORDERED: ASPIRIN 81 MG CHEW ONE (23:37)
[2023-03-10] MEDS: ENOXAPARIN INJ 40 MG/0.4 ML SYR SQ SCH (23:41)
[2023-03-10] MEDS: CARBIDOPA/LEVODOPA 25/100MG TAB PO SCH (23:42)
[2023-03-10] MEDS: LACTATED RINGER'S 1,000 ML IV SCH (23:46)
[2023-03-10] MEDS: INSULIN ASPART PER UNIT CHARGE SC SCH (23:46)
[2023-03-11 08:24] LABS: Basophils # (auto) 0.04 K/uL (0-0.2); Basophils % (auto) 0.4 %; Eosinophils # (auto) 0.32 K/uL (0-0.50); Eosinophils % (auto) 3.5 %; Hematocrit (blood only) 38.2 % (42.0-52.0); Hemoglobin 12.9 g/dl (14.0-18.0); Immature Granulocytes # (auto) 0.03 K/uL (0.01-0.20); Immature Granulocytes % (auto) 0.3 %; Lymphocytes # (auto) 2.07 K/uL (1.2-3.4); Lymphocytes % (auto) 22.9 %; Mean Corpuscular Hemoglobin 30.5 pg (25.0-34.0); Mean Corpuscular Hgb Conc 33.8 g/dL (32.0-36.0); Mean Corpuscular Volume 90.3 fL (80.0-100.0); Mean Platelet Volume 9.6 fL (9.4-12.4); Monocytes # (auto) 0.73 K/uL (0.11-0.59); Monocytes % (auto) 8.1 %; Neutrophils # (auto) 5.83 K/uL (1.40-6.50); Neutrophils % (auto) 64.8 %; Platelet Count 160 K/uL (130-400); RDW Coefficient of Variation 13.5 % (11.5-14.5); RDW Standard Deviation 44.4 fL (36.4-46.3); Red Blood Count 4.23 M/uL (4.70-6.10); White Blood Count 9.02 K/ul (4.8-10.8)
--- NOTE | 2023-03-11 08:28 | Neurology Consultation ---
Date of Consultation March 11, 2023 Assessment & Plan (1) Parkinsonism: Patient presents with L facial droop and gait disturbance from left leg pain. He is not weak in the L leg, suspect muscular injury potentially secondary to his falls. Facial droop can be seen with hypomimia, unclear baseline. Reassuringly M RI is negative for stroke, symptoms do not localize to the Cspine though MRI C- spine a year ago was unremarkable. Could consider UA as he had similar symptoms with UTI in the past. Otherwise no further neurologic workup, can be discharged per medicine team, please contact us with any further questions. Telehealth Consultation Telehealth Information Telehealth Information: I performed this visit using a real-time telehealth connection between my location and the patients location ([facility]). After connecting through interactive tele-video, patient was identified by name and date of and/or wristband check.Patient (or authorized healthcare rental representative) was informed that this was a telemedicine visit and it was being conducted confidentially over secure lines. My office door was closed and no one else was present in the room with me.Patient (or authorized healthcare rental representative) provided consent to proceed with the visit, expressed an understanding of privacy and security of the telemedicine visit, and gave permission to have a hospital rental representative in the room in order to assist with the visit and to conduct portions of the visit, as needed. I informed the patient (or authorized healthcare rental representative) that I reviewed their record and presented the opportunity for them to ask any questions regarding the visit today. The patient agreed to participate. History of Present Illness Reason for Consultation: L sided weakness Requesting Physician: Dr. De Leon Attending Physician: Casimiro De Leon History of Present Illness Major Walker is an 87 yo M presenting from neurology clinic with concern for a stroke due to one week of gait instability due to L leg weakness and L facial droop. The patient believes his symptoms began a week ago, he is normally able to ambulate with a walker but admits to frequent falls. His main complaint is pain in the posterior aspect of the thigh when stretching or moving the leg. He is otherwise able to lift it well. He denies any arm weakness and is unsure if his face feels different than normal. He reports his parkinson's tremor is primarily in his R arm, not the left side. Allergies Allergy/AdvReac Type Severity Reaction Status Date / Time No Known Drug Allergies Allergy Unknown Verified 03/10/23 14:29 Home Medications Medication Instructions Recorded Confirmed Type blood-glucose meter (PeriGenTouch #1 ea 03/13/19 03/10/23 History Ultra2 Meter) calcium carbonate 600 mg calcium 600 mg PO DAILY 03/13/19 03/10/23 History (1,500 mg) tablet (Calcium) syringe with needle 3 mL 25 x 5/8" #6 ea 12/03/21 03/10/23 Rx (BD Luer-Frank Syringe) insulin lispro 100 unit/mL 20 - 25 unit (0.2 - 0.25 mL) 05/10/22 03/10/23 Rx subcutaneous pen (Humalog KwikPen subcut TID 90 days #90 mL (U-100) Insulin) amlodipine 2.5 mg tablet 2.5 mg PO DAILY #90 tabs 07/11/22 03/10/23 Rx clopidogrel 75 mg tablet 75 mg PO DAILY #90 tabs 07/11/22 03/10/23 Rx cholecalciferol (vitamin D3) 125 125 mcg PO DAILY 09/29/22 03/10/23 History mcg (5,000 unit) capsule blood sugar diagnostic #200 ea 10/03/22 03/10/23 Rx pen needle, diabetic 31 gauge x #200 ea 10/03/22 03/10/23 Rx 5/16" (BD Ultra-Fine Short Pen Needle) lancets 30 gauge (PeriGenTouch Deljhonny #100 ea 10/04/22 03/10/23 Rx Lancets) tamsulosin 0.4 mg capsule 0.4 mg PO DAILY #100 caps 10/05/22 03/10/23 Rx carbidopa 25 mg-levodopa 100 mg 1 tab PO TID #90 tabs 11/11/22 03/10/23 Rx tablet (Sinemet) fosinopril 10 mg tablet 5 mg PO DAILY #45 tabs 01/13/23 03/10/23 Rx atorvastatin 40 mg tablet 40 mg PO DAILY #90 tabs 01/25/23 03/10/23 Rx insulin detemir U-100 100 unit/mL 50 unit subcut HS 03/10/23 03/10/23 History (3 mL) subcutaneous pen Patient History Medical History Hematuria Stroke Type 2 diabetes mellitus with kidney complication, with long-term current use of insulin Surgical History History of cataract surgery History of intravascular stent placement Hx of excision of epidermal inclusion cyst (05/21/21) Excision right neck cyst in office 05/21/21 Dr. Locke Family History Family/Other Diabetes Hypertension Sister Kidney disease Other Cancer Denies family history of Ovarian cancer Prostate cancer Myocardial infarction Breast cancer Colorectal cancer Social History Smoking Status: Former smoker Tobacco Type: Smokeless Tobacco (Dip or Chew) Age Started Using Tobacco: 22; Age Quit Using Tobacco: 52; Smoking End Date: 30 years ago; Second Hand Exposure: No; Do You Dip or Chew Tobacco: Yes; Hx Alcohol Use: No Hx Substance Use: No Preferred Language: Arabic Communication Ability: Effective Seniour Insight Manager Required: No Beliefs That Will Affect Care: None marital status: Current Living Situation: Spouse Current Living Situation Comment: with current occupational status: retired How many Children do You have: 0 Other Information That Helps Us Care for You: No Feels Safe at Home: Yes Safety Concerns: Feels Safe At This Time Childhood Exposure to Second-Hand Smoke: Yes Diet: regular caffeine: Yes Dental Care, Regularly: No Physical Activity Frequency: Does not Exercise Seatbelt Use: sometimes Sunscreen Use: No Assistive Devices: Walker Review of Systems +L leg pain Physical Exam Neurological Examination: Mental Status: Alerts to voice, needs stimulation to maintain wakefulness. Oriented to person, and situation. Fluent with mild dysarthria. Comprehension intact. Affect appropriate. Cranial Nerves: II: , pupils 3/3 to 2/2, III/IV/: Versions intact without nystagmus, no gaze preference. V: Facial sensation symmetric to light touch VII: Facial expression reduced on the left with hypomimia VIII: Hearing intact to voice IX/X: Palate elevates symmetrically Motor: Strength was symmetric and antigravity throughout. Pronator drift was absent. There were no abnormal movements. Reflexes: Unable to assess over telemedicine Results & Data Vital Signs (Past 12 Hours) Vital Signs Temp Pulse Pulse Resp BP Pulse Ox O2 Del Method 03/11/23 07:30 76 03/11/23 07: 36.7 C 77 18 169/99 H 96 Room Air 03/10/23 21:58 98 H 03/10/23 21:33 95 H 03/11/23 04:04 36.6 C 77 18 164/96 H 94 Room Air 03/10/23 22:00 36.6 C 18 160/73 H 94 Room Air Laboratory Results Abnormal lab results 03/10/23 03/10/23 03/10/23 Range/Units 15:40 15:40 22:58 RBC 4.23 L (4.70-6.10) M/uL Hgb 12.7 L (14.0-18.0) g/dl Hct 39.9 L (42.0-52.0) % MCHC 31.8 L (32.0-36.0) g/dL RDW Std Deviation 47.3 H (36.4-46.3) fL Mcleod # (Auto) (0.11-0.59) K/uL BUN 32 H (6-23) mg/dl BUN/Creatinine Ratio 24.6 H (10-20) Glucose 104 H (70-99(Fasting)) mg/dl POC Glucose 101 H (70-99) mg/dl ALT 3 L (7-52) U/L 03/11/23 Range/Units 07:47 RBC 4.23 L (4.70-6.10) M/uL Hgb 12.9 L (14.0-18.0) g/dl Hct 38.2 L (42.0-52.0) % MCHC (32.0-36.0) g/dL RDW Std Deviation (36.4-46.3) fL Mcleod # (Auto) 0.73 H (0.11-0.59) K/uL BUN (6-23) mg/dl BUN/Creatinine Ratio (10-20) Glucose (70-99(Fasting)) mg/dl POC Glucose (70-99) mg/dl ALT (7-52) U/L Diagnostic Findings MRI brain 03/10 - Unremarkable
[2023-03-11 08:46] LABS: BUN Creatinine Ratio 23.3 (10-20); Chol HDL Ratio 3.3 (0-5); Creatinine Clr Calc Pharmacy 48.5 ml/min; Est GFR (African American) 63.5 ml/min; Est GFR (Non-African American) 54.8 ml/min; Potassium 3.8 mmol/L (3.5-5.1)
[2023-03-11 09:16] LABS: Estimated Average Glucose 117 mg/dl; Hemoglobin A1C 5.7 % (4.5-5.6)
[2023-03-11] MEDS: CARBIDOPA/LEVODOPA 25/100MG TAB PO SCH ×3 (09:23→21:28)
[2023-03-11] MEDS: lisinopril 5 MG TAB PO SCH (09:24)
[2023-03-11] MEDS: CHOLECALCIFEROL 1,000 UNITS 25 MCG TAB PO SCH (09:24)
[2023-03-11] MEDS: TAMSULOSIN HCL 0.4 MG CAP PO SCH (09:24)
[2023-03-11] MEDS: CLOPIDOGREL BISULFATE 75 MG TAB PO SCH (09:24)
[2023-03-11] MEDS: amLODIPine BESYLATE 5 MG TAB PO SCH (09:25)
[2023-03-11] MEDS: ASPIRIN 81 MG ECTAB PO SCH (09:25)
[2023-03-11] MEDS: ATORVASTATIN 40 MG TAB PO SCH (09:25)
[2023-03-11] MEDS: LACTATED RINGER'S 1,000 ML IV SCH ×2 (09:30→17:28)
[2023-03-11] MEDS: INSULIN ASPART PER UNIT CHARGE SC SCH ×4 (10:08→21:28)
[2023-03-11] MEDS: LANTUS PER UNIT CHARGE SQ SCH ×2 (10:09→21:32)
[2023-03-11] MEDS ORDERED: Nursing to Pharmacy Communication SCH (10:15)
[2023-03-11] MEDS ORDERED: LANTUS PER UNIT CHARGE SQ ONE (10:15)
--- NOTE | 2023-03-11 10:37 | Billing Data ---
Date of Service March 10, 2023 Coding Level of Care Code 70689 INT INP/OBS CARE
[2023-03-11 12:07] LABS: Appearance Urine Clear (Clear); Bacteria Urine Automated Negative (Negative); Bilirubin Urine Negative (Negative); Blood Urine Trace (Negative); Cast Urine Automated 0 /lpf (0-5); Color Urine Yellow; Epithelial Cell Urine Auto 0-5 /lpf (0-5); Glucose Urine UA Negative (Negative); Ketones Urine Negative (Negative); Leukocyte Esterase Urine Negative (Negative); Nitrite Urine Negative (Negative); Protein Urine Negative (Negative); RBC Urine Automated 0-4 /hpf (0-4); Specific Gravity Urine 1.013 (1.000-1.030); Urobilinogen Urine Negative (Negative); pH Urine 5.5 (4.5-7.5)
--- NOTE | 2023-03-11 12:53 | XCELERA ---
[id number]
--- NOTE | 2023-03-11 21:02 | XRay Report ---
XR hip LT 2V w pelvis CLINICAL HISTORY: left hip pain COMPARISON STUDY: Pelvis 01/08/2018. FINDINGS: No fracture or dislocation within the pelvis or hips. Vascular calcifications are noted. Th e sacrum is intact. IMPRESSION: No fracture or dislocation within the pelvis or hips. ACT 112: Negative or not required by law. Electronically signed by: Jersey Goldberg M.D. 03/11/2023 9:01 PM
[2023-03-11] MEDS: ENOXAPARIN INJ 40 MG/0.4 ML SYR SQ SCH (21:29)
--- NOTE | 2023-03-11 22:26 | Hospitalist Progress Note ---
Date of Service March 11, 2023 Assessment & Plan (1) Cerebrovascular accident: Plan: Concern for CVA - symptoms started Monday, would be out of the TPA window - NIH Stroke Scale= 5 - Head CT negative, Brain MRI ordered - Echo with bubble study - PT/OT consult - continue Plavix, will aspirin load with 324mg followed by 81mg daily - already on 40mg atorvastatin - neurology consulted : MRI is negative. Given left leg weakness, will obtain xray of his hip. will also consult ortho. HTN - he is out of the window for permissive HTN - plan to continue his home medications; amlodipine, fosinopril DM2 - Home regimen 50 units Levemir HS, Humalog 20-25 TID - last hemoglobin a1c= 6.4 08/2022-> will repeat with morning labs - Plan to start on 15 units NovoLog BID with SSI correction factor of 20 with a carb ratio of 7 based off insulin calculator HLD - continue statin - lipid panel with morning labs Parkinson's Disease - Continue carbidopa- levodopa Vitamin D Def - continue supplementation BPH - continue tamsulosin Diet: Regular after dysphagia screening VTE prophylaxis: Lovenox Dipso: Med Surg with Tele (2) Facial droop: (3) Left-sided weakness: (4) Parkinsonism: (5) Stage 3b chronic kidney disease: (6) Type 2 DM with CKD stage 3 and hypertension: (7) Dyslipidemia: Admission and Anticipated Discharge Date Admission Date: March 10, 2023 Subjective 87 yo male reports no new symptoms. Review of Systems Review of Systems: All systems reviewed & are unremarkable except as noted in HPI & below Physical Exam Physical Exam: Constitutional: well-appearing, no acute distress HEENT: NCAT, no conjunctival injection CV: regular rhythm, no murmur appreciated, extremities well-perfused, no LE edema Resp: CTA BL GI: soft, nondistended, nontender, BS normoactive MSK: no gross deformities appreciated, log roll is negative. Skin: warm, dry, no rash appreciated Neurologic: normal touch/pain/proprioception and awake Speech / Cognition: normal speech Cranial Nerves: PERRL, EOM intact bilaterally, tongue midline, normal hearing, able to rotate head bilaterally and able to elevate shoulders bilaterally Left sided facial droop, strength left upper/lower extremity 4/5, right 5/5 Results & Data Results & Data Vital Signs (Past 12 Hours) Vital Signs Temp Pulse Pulse Resp BP Pulse Ox O2 Del Method 03/11/23 19:44 36.6 C 65 18 134/75 98 Room Air 03/11/23 16:09 36.6 C 67 16 120/73 95 Room Air 03/11/23 15:15 67 03/11/23 11:36 36.8 C 80 18 104/67 95 Room Air PG Care Time/CCT Total # of Minutes Spent Total Time Spent with Patient: Total time spent is greater than 50% in coordination of care (as documented) at patient's floor/unit and/or counseling patient: Coding Level of Care Code 71066 SUB INP/OBS CARE 2/35MIN Diagnoses Cerebrovascular accident I63.9 Facial droop R29.810 Left-sided weakness R53.1 Parkinsonism G20 Stage 3b chronic kidney disease N18.32 Type 2 DM with CKD stage 3 and hypertension E11.22; I12.9; N18.3 Dyslipidemia E78.5
[2023-03-12] MEDS: LACTATED RINGER'S 1,000 ML IV SCH (07:15)
[2023-03-12 07:51] LABS: Basophils # (auto) 0.05 K/uL (0-0.2); Basophils % (auto) 0.5 %; Eosinophils # (auto) 0.31 K/uL (0-0.50); Eosinophils % (auto) 3.3 %; Hematocrit (blood only) 37.4 % (42.0-52.0); Hemoglobin 12.2 g/dl (14.0-18.0); Immature Granulocytes # (auto) 0.03 K/uL (0.01-0.20); Immature Granulocytes % (auto) 0.3 %; Lymphocytes # (auto) 2.03 K/uL (1.2-3.4); Lymphocytes % (auto) 21.8 %; Mean Corpuscular Hemoglobin 30.2 pg (25.0-34.0); Mean Corpuscular Hgb Conc 32.6 g/dL (32.0-36.0); Mean Corpuscular Volume 92.6 fL (80.0-100.0); Mean Platelet Volume 9.7 fL (9.4-12.4); Monocytes # (auto) 0.77 K/uL (0.11-0.59); Monocytes % (auto) 8.3 %; Neutrophils # (auto) 6.14 K/uL (1.40-6.50); Neutrophils % (auto) 65.8 %; Platelet Count 153 K/uL (130-400); RDW Coefficient of Variation 13.4 % (11.5-14.5); RDW Standard Deviation 45.7 fL (36.4-46.3); Red Blood Count 4.04 M/uL (4.70-6.10); White Blood Count 9.33 K/ul (4.8-10.8)
[2023-03-12 08:01] LABS: BUN Creatinine Ratio 24.6 (10-20); Creatinine Clr Calc Pharmacy 51.1 ml/min; Est GFR (African American) 67.6 ml/min; Est GFR (Non-African American) 58.3 ml/min; Potassium 3.7 mmol/L (3.5-5.1)
[2023-03-12] MEDS: CARBIDOPA/LEVODOPA 25/100MG TAB PO SCH (09:12)
[2023-03-12] MEDS: INSULIN ASPART PER UNIT CHARGE SC SCH ×2 (09:12→12:25)
[2023-03-12] MEDS: LANTUS PER UNIT CHARGE SQ SCH (09:12)
[2023-03-12] MEDS: ATORVASTATIN 40 MG TAB PO SCH (09:13)
[2023-03-12] MEDS: TAMSULOSIN HCL 0.4 MG CAP PO SCH (09:13)
[2023-03-12] MEDS: CHOLECALCIFEROL 1,000 UNITS 25 MCG TAB PO SCH (09:13)
[2023-03-12] MEDS: lisinopril 5 MG TAB PO SCH (09:13)
[2023-03-12] MEDS: amLODIPine BESYLATE 5 MG TAB PO SCH (09:13)
[2023-03-12] MEDS: ASPIRIN 81 MG ECTAB PO SCH (09:13)
[2023-03-12] MEDS: CLOPIDOGREL BISULFATE 75 MG TAB PO SCH (09:14)
--- NOTE | 2023-03-12 09:35 | Orthopedic Consultation ---
Date of Consultation March 12, 2023 Assessment & Plan (1) Left hip pain: 87 yo male with nonspecific left hip/LE pain. Discussed with pt and . Differential diagnosis includes early hip DJD, mild trochanteric bursitis, lumbar spine DDD, soft tissue trauma secondary to recent falls. Will order L-spine xrays. is hoping to be discharged today which i think is appropriate. Patient may benefit from home/oupt PT. Follow-up as needed as an outpt with [facility], call [phone] for appt. History of Present Illness Reason for Consultation: Left hip/thigh pain Attending Physician: Casimiro De Leon History of Present Illness 87 yo male with multiple medical problems including HTN, HLD, Type II DM, CAD, Stage III CKD, Parkinson's disease, and BPH admitted for questionable CVA. Pt has been evaluated by neurology and CVA ruled out. Orthopedics consult asked for secondary to left hip/LE pain. Pt states left LE pain x ~ 2 weeks and h/o multiple frequent falls. Pt's present during consultation. Allergies Allergy/AdvReac Type Severity Reaction Status Date / Time No Known Drug Allergies Allergy Unknown Verified 03/10/23 14:29 Home Medications Medication Instructions Recorded Confirmed Type blood-glucose meter (Bugcrowduch #1 ea 03/13/19 03/10/23 History Ultra2 Meter) calcium carbonate 600 mg calcium 600 mg PO DAILY 03/13/19 03/10/23 History (1,500 mg) tablet (Calcium) syringe with needle 3 mL 25 x 5/8" #6 ea 12/03/21 03/10/23 Rx (BD Luer-Frank Syringe) insulin lispro 100 unit/mL 20 - 25 unit (0.2 - 0.25 mL) 05/10/22 03/10/23 Rx subcutaneous pen (Humalog KwikPen subcut TID 90 days #90 mL (U-100) Insulin) amlodipine 2.5 mg tablet 2.5 mg PO DAILY #90 tabs 07/11/22 03/10/23 Rx clopidogrel 75 mg tablet 75 mg PO DAILY #90 tabs 07/11/22 03/10/23 Rx cholecalciferol (vitamin D3) 125 125 mcg PO DAILY 09/29/22 03/10/23 History mcg (5,000 unit) capsule blood sugar diagnostic #200 ea 10/03/22 03/10/23 Rx pen needle, diabetic 31 gauge x #200 ea 10/03/22 03/10/23 Rx 5/16" (BD Ultra-Fine Short Pen Needle) lancets 30 gauge (OneTouch Delica #100 ea 10/04/22 03/10/23 Rx Lancets) tamsulosin 0.4 mg capsule 0.4 mg PO DAILY #100 caps 10/05/22 03/10/23 Rx carbidopa 25 mg-levodopa 100 mg 1 tab PO TID #90 tabs 11/11/22 03/10/23 Rx tablet (Sinemet) fosinopril 10 mg tablet 5 mg PO DAILY #45 tabs 01/13/23 03/10/23 Rx atorvastatin 40 mg tablet 40 mg PO DAILY #90 tabs 01/25/23 03/10/23 Rx insulin detemir U-100 100 unit/mL 50 unit subcut HS 03/10/23 03/10/23 History (3 mL) subcutaneous pen Patient History Medical History Hematuria Stroke Type 2 diabetes mellitus with kidney complication, with long-term current use of insulin Surgical History History of cataract surgery History of intravascular stent placement Hx of excision of epidermal inclusion cyst (05/21/21) Excision right neck cyst in office 05/21/21 Dr. Locke Family History Family/Other Diabetes Hypertension Sister Kidney disease Other Cancer Denies family history of Ovarian cancer Prostate cancer Myocardial infarction Breast cancer Colorectal cancer Social History Smoking Status: Former smoker Tobacco Type: Smokeless Tobacco (Dip or Chew) Age Started Using Tobacco: 22; Age Quit Using Tobacco: 52; Smoking End Date: 30 years ago; Second Hand Exposure: No; Do You Dip or Chew Tobacco: Yes; Hx Alcohol Use: No Hx Substance Use: No Preferred Language: Bhutanese Communication Ability: Effective Technical Account Executive Required: No Beliefs That Will Affect Care: None marital status: Current Living Situation: Spouse Current Living Situation Comment: with current occupational status: retired How many Children do You have: 0 Other Information That Helps Us Care for You: No Feels Safe at Home: Yes Safety Concerns: Feels Safe At This Time Childhood Exposure to Second-Hand Smoke: Yes Diet: regular caffeine: Yes Dental Care, Regularly: No Physical Activity Frequency: Does not Exercise Seatbelt Use: sometimes Sunscreen Use: No Assistive Devices: Walker Physical Exam Physical Exam: Pt resting in chair. He localizes pain to lateral hip and posterior thigh. Mild tenderness to palpate lateral hip/trochanteric bursa. Mild discomfort with passive hip IR/ER. Negative straight leg raise. Pt can actively flex/extend knee and plantarflex/dorsiflex ankle. Results & Data Vital Signs (Past 12 Hours) Vital Signs Temp Pulse Pulse Resp BP BP Pulse Ox 03/12/23 07:17 36.5 C 85 20 169/88 H 99 03/12/23 07:01 78 03/11/23 22:04 66 03/12/23 03:45 36.7 C 79 18 163/88 H 94 03/11/23 23:10 36.9 C 72 18 149/82 H 95 O2 Del Method 03/12/23 07:17 Room Air 03/12/23 07:01 03/11/23 22:04 03/12/23 03:45 Room Air 03/11/23 23:10 Room Air Diagnostic Findings Ap pelvis and left lateral hip xrays reviewed by myself and Dr Zarco and shows no acute abnormality or significant degenerative changes.
--- NOTE | 2023-03-12 11:26 | XRay Report ---
XR lumbar spine 2-3V CLINICAL HISTORY: left LE pain TECHNIQUE: 3 views of the lumbar spine were obtained. Comparison: Comparison is made to lumbar spine radiographs 01/08/2018 FINDINGS: There is a compression deformity of L3 which was not seen on prior exams. Degenerative changes are se en in the lumbar spine. The alignment is normal. Vascular calcifications are seen with an infrarenal aortic aneurysm, approximately unchanged from prior exam. IMPRESSION: Age-indeterminate compression deformity of L3, correlation with point tenderness is recommended to ex clude acute fracture. ACT 112: Negative or not required by law. Electronically signed by: Moo Serrano M.D. 03/12/2023 11:25 AM
[2023-03-12] MEDS ORDERED: STROKE PATIENT DISCHARGE STA (12:26)
--- NOTE | 2023-03-12 12:30 | Discharge Summary ---
Date of Service March 12, 2023 Admission HPI Per Admitting Provider 87 year old male with a past medical history of DM2, HTN, HLD, CKD stage III, Hyperparathyroidism, CVA, Parkinsonism, AAA, CAD s/p PCI refereed but neurologist after appointment this afternoon. On Tuesday 03/06 he fell while cooking breakfast. Since that he has been dragging his left foot and has had a left sided facial droop. Has been using a walker. Denies headache, slurred speech, neck pain, chest pain, dyspnea. History of prior stroke a few years ago, on Plavix. ED Work-up significant for: CBC, CMP unremarkable. CXR unremarkable. Head CT- without acute intracranial abnormality. Atrophy and microvascular ischemic changes. Principal Diagnosis left leg weakness Discharge Exam Constitutional: well-appearing, no acute distress HEENT: NCAT, no conjunctival injection CV: regular rhythm, no murmur appreciated, extremities well-perfused, no LE edema Resp: CTA BL GI: soft, nondistended, nontender, BS normoactive MSK: no gross deformities appreciated, log roll is negative. Skin: warm, dry, no rash appreciated Neurologic: normal touch/pain/proprioception and awake Speech / Cognition: normal speech Cranial Nerves: PERRL, EOM intact bilaterally, tongue midline, normal hearing, able to rotate head bilaterally and able to elevate shoulders bilaterally Left sided facial droop, strength left upper/lower extremity 4/5, right 5/5 Discharge Data Allergies Allergy/AdvReac Type Severity Reaction Status Date / Time No Known Drug Allergies Allergy Unknown Verified 03/10/23 14:29 Consultations 03/10/23 17:14 ED Decision to Admit Stat 03/10/23 21:19 Consult Neurology Routine 03/11/23 16:09 Consult Orthopedic Surgery Routine Ordered Studies 03/10/23 15:32 CT head/brain wo con Stat 03/10/23 17:19 MRI Brain [MR brain wo con] Stat Hospital Course (1) Cerebrovascular accident: Concern for CVA - symptoms started Monday, would be out of the TPA window - NIH Stroke Scale= 5 - Head CT negative, Brain MRI ordered - Echo with bubble study - PT/OT consult - continue Plavix, will aspirin load with 324mg followed by 81mg daily - already on 40mg atorvastatin - neurology consulted : MRI is negative. Given left leg weakness, will obtain xray of his hip, this was negative Ortho consulted no surgical intervention. Patient had an L3 Compression fracture, given lack of pain, this is likely chronic. will defer further osteoporotic treatment to PCP May benefit from osteopathic manipulation techniques. refused inpatient rehab, patient willhave outpatient rehab HTN - he is out of the window for permissive HTN - plan to continue his home medications; amlodipine, fosinopril DM2 - Home regimen 50 units Levemir HS, Humalog 20-25 TID - last hemoglobin a1c= 6.4 08/2022-> will repeat with morning labs - will resume home regimen at discharge. HLD - continue statin Parkinson's Disease - Continue carbidopa- levodopa Vitamin D Def - continue supplementation BPH - continue tamsulosin (2) Facial droop: (3) Left-sided weakness: (4) Parkinsonism: (5) Stage 3b chronic kidney disease: (6) Type 2 DM with CKD stage 3 and hypertension: (7) Dyslipidemia: Total Time Total Time Spent Total Time Spent (In Minutes): 32 Discharge Plan Discharge Items Patient Disposition: Home - Home Health Services Reason For Visit: CONCERN FOR STROKE Discharge Diagnosis: left leg weakness Activity: Resume your previous activity Non-emergency contact: Primary Care Provider Call non-emergency contact if: you have any medication questions Follow-up/Referrals: Keith Yung DO [Primary Care Provider] - 03/20/23 12:00 pm Diet: Carb Consistent or DM2 Addtl Attending Provider Instructions: Recommend to continue physical therapy. Recommend close followup with PCP in 1-2 weeks. Pending Studies at Discharge: No Stand-Alone Forms: My [facility] [employer], Smoking Cessation Medications and DC Order Prescriptions: Continued insulin lispro [Humalog KwikPen Insulin] 100 unit/mL insulin pen 20 - 25 unit SQ TID 90 Days Qty: 90 3RF clopidogrel 75 mg tablet 75 mg PO DAILY Qty: 90 3RF amlodipine 2.5 mg tablet 2.5 mg PO DAILY Qty: 90 3RF (DME) blood sugar diagnostic Strip See Dose Instructions .ROUTE .MEDSUPPLY Qty: 200 11RF Rx Instructions: USE ONE STRIP TO CHECK GLUCOSE 3 TIMES DAILY E11.9 (DME) pen needle, diabetic [BD Ultra-Fine Short Pen Needle] 31 gauge x 5/16" needle See Dose Instructions .ROUTE .MEDSUPPLY Qty: 200 3RF Rx Instructions: Use with insulin pen twice daily Dx:E11.9 (DME) lancets [OneTouch Delica Lancets] 30 gauge misc See Rx Instructions .Route Qty: 100 11RF Rx Instructions: Test three times daily carbidopa-levodopa [Sinemet] 25-100 mg tablet 1 tab PO TID Qty: 90 5RF fosinopril 10 mg tablet 5 mg PO DAILY Qty: 45 3RF atorvastatin 40 mg tablet 40 mg PO DAILY Qty: 90 3RF calcium carbonate [Calcium 600] 600 mg calcium (1,500 mg) tablet 600 mg PO DAILY (DME) blood-glucose meter [Liquid StateTouch Ultra2 Meter] misc See Dose Instructions .ROUTE .MEDSUPPLY Qty: 1 Rx Instructions: As directed tamsulosin 0.4 mg capsule 0.4 mg PO DAILY Qty: 100 3RF Rx Instructions: 30 minutes after supper (DME) BD Luer-Frank Syringe 3 mL 25 x 5/8" syringe See Rx Instructions .Route Qty: 6 0RF Rx Instructions: Use with Vitamin B12 injectable solution cholecalciferol (vitamin D3) 125 mcg (5,000 unit) capsule 125 mcg PO DAILY Rx Instructions: Take 5 / 7 days per week insulin detemir U-100 100 unit/mL (3 mL) insulin pen 50 unit subcut HS Discharge Orders: Discharge Order (Routine); Ordered 03/12/23 Ordered By: Casimiro De Leon Admission Data Admit Date/Time: 03/10/23 18:15 Attending Provider: Casimiro De Leon Admit Provider: Yady Watson Primary Care Provider: Keith Yung Other Providers: Dereck Burk ; Master Zarco ; [facility] Other Interventions: Discharge Summary Assessment (RN) Last Done: 03/12/23 12:27 Coding Level of Care Code 52275 INP/OBS DISCH >30 MIN Diagnoses Cerebrovascular accident I63.9 Facial droop R29.810 Left-sided weakness R53.1 Parkinsonism G20 Stage 3b chronic kidney disease N18.32 Type 2 DM with CKD stage 3 and hypertension E11.22; I12.9; N18.3 Dyslipidemia E78.5
== END 2023-03-12 13:05 | disposition home health service (06) | DRG 556 ==
LOC: ED 15:20 → SUATTDRO 18:15 → 2N 18:15

== ENCOUNTER 2025-04-03 09:05 | Observation (INO) ==
--- NOTE | 2025-04-03 09:07 | Emergency Department Note ---
Impression & Plan Complicated urinary tract infection, Non-ST elevation PR (NSTEMI), Hypoalbuminemia, Acute atelectasis, Encephalopathy acute, Weakness ED Provider Note NAME: TR PATRICIO AGE: 89 SEX: M : 1935 ARRIVES VIA: Ambulance INFORMANT: Patient, EMS ED PROVIDER(S): Taco Menendez DO CHIEF COMPLAINT: generalized weakness HPI: This is a 89-year-old male with the PMHx of HTN, HLD, CKD, AAA, CAD, BPH with urinary retention s/p chronic urethral catheter, Parkinsonism, memory impairment and prior CVA with residual deficits including weakness and facial droop presenting to [facility] for further evaluation of weakness. Patient is accompanied by EMS who provide additional history. EMS reports that they were called today for generalized weakness. The patient has been weak over the few days. Patient was found to be febrile. He was greater than a gram of Tylenol by EMS. present at the bedside and provide further history. Patient states he he was here on Monday. Patient's reports that he pulled out his Marks catheter. She reports that this has been in the past few months. Patient completed 7 days of antibiotics recently. Patient had a Tmax at home of 103 F. has been giving him antipyretics without improvement. He has been worsening to the point where he seems confused and weak. notes that some of the weakness and his facial droop is chronic from a prior stroke. She does note he seems congested and very dry oral mucosa. They deny fever or chills. No cough. Denies chest pain or palpitations. No shortness of breath. They deny abdominal pain, nausea and vomiting. No urinary complaints. No recent changes in bowel movements. Patient denies recent changes in medications or OTC supplements. Patient offers no other complaints, today. ADDITIONAL HISTORY OBTAINED: Per HPI Chronic Medical/Social Conditions Affecting Care: Per HPI PAST MEDICAL HISTORY: See Below PAST SURGICAL HISTORY: See Below FAMILY HISTORY: See Below SOCIAL HISTORY: See Below HOME MEDICATIONS: See Below ALLERGIES: See Below VITALS: See Below PHYSICAL EXAMINATION: GENERAL: Sitting up in bed, alert, well appearing, well nourished, no distress, non-toxic EYE EXAM: normal conjunctiva. PERRL and EOM's grossly intact. OROPHARYNX: no exudate, no erythema, lips, buccal mucosa, and tongue and mucous membranes are extremely dry. Breathing with mouth held open. Severely dried saliva and secretions removed from mouth by 4x4s. NECK: supple, no nuchal rigidity, no adenopathy, non-tender LUNGS: Clear to auscultation. Normal chest wall mechanics HEART: no murmurs, regular rate, regular rhythm ABDOMEN: abdomen soft, non-tender, no masses, no rebound or guarding. : urethral catheter in place. Hypospadias versus chronic erosion from catheter. BACK: Back is symmetrical on inspection and there is no deformity, no midline tenderness, no CVA tenderness. SKIN: no rashes and no bruising EXTREMITIES: weakness noted in all extremities with some rigidity NEURO EXAM: Normal sensorium, GCS 14, slightly dysarthric speech, Gross sensation intact. Chronic facial droop. MEDICAL DECISION MAKING: Differential diagnoses includes but not limited to sepsis, bacteremia, complicated UTI, viral URI, PNA, electrolyte derangements, dehydration, CVA, dysrhythmia, ACS In summary, this is a 89 year old male who presented with fevers and weakness. Differential as above. Nursing notes and pertinent past medical records reviewed. Vital signs reviewed and the patient is afebrile and HDS. Fever likely controlled by prehospital staff. HR still intermittently 90s. History and presentation revealed The patient arrives from home with EMS reporting that the patient is normally able to ambulate by himself and speak. On my initial evaluation, the patient is rigid in all 4 extremities with open mouth and severely dry oral mucosa and sputum. Patient has a Marks catheter in place. I doubt the patient functions by himself. Patient did have a fever prehospital and has a heart rate over 90 in the emergency department, plan for sepsis alert and on broad-spectrum antibiotics. Will give gentle IV fluid resuscitation as patient's heart rate and blood pressure are relatively normal. He did already receive antipyretics with EMS. Physical examination revealed has had chronic weakness in the extremities, dysarthria and facial droop. I am not concerned for stroke at this time. Do believe he is likely septic. Suspect this is likely from a complicated UTI but will obtain further workup. We started on broad-spectrum antibiotics as well as IV fluid resuscitation. Diagnostics interpreted by me include EKG and cardiac monitoring as listed below: -Cardiac Monitoring: An order was placed for continuous cardiac monitoring. The monitor shows a rate of 70-90s with regular rhythm. -ECG: EKG independently interpreted by me reveals normal sinus rhythm at a ventricular rate of [address] segment changes to suggest STEMI. There is 1 PVC present on this rhythm strip. Patient completed laboratory studies and imaging. Results independently interpreted by me are leukocytosis. Stable anemia. No elevation in lactate. There is a slight alkalosis. The patient was managed with IV fluid resuscitation and broad-spectrum antibiotics. Patient did have an elevated troponin. Patient's EKG is his baseline and unchanged from prior as independently reviewed by me. Patient does not have symptoms of angina. Do believe this likely an NSTEMI in the setting of demand ischemia secondary to sepsis. Will repeat troponin and hold heparin. chest x-ray independently interpreted by me reveals possible left lower lobe consolidation. Could be atelectasis. It could be pneumonia as the source of his infection. Patient did receive broad-spectrum antibiotics with IV cefepime. Will add doxycycline on for atypical coverage. reviewed prior culture data. Patient has largely pansensitive E. coli. Some streptococcal species in the past. Enterococcus a number of years ago. Feel it is reasonable to continue cefepime and doxycycline at this time. Patient is septic secondary to complicated UTI. There is possibility of pneumonia. Patient has a lactic acidosis as well at demand ischemia. RVP was negative. Discussed with regarding admission. She is agreeable to this. Ultimately, the decision was made to admit the patient for Sepsis secondary to complicated UTI with possibility of pneumonia as well as NSTEMI in the setting of demand ischemia. It was recommended to admit this patient at 1112. I discussed the case with the hospitalist service via telephone/TigerText and they are agreeable to admit the patient to their services. Based on the above, including the patient's age, coexisting illnesses, labs, imaging, and exam findings the decision to treat as an inpatient. I discussed the patient with the hospitalist team who recommended admission to their services. They received the medications, treatments, interventions indicated above and their condition []. I discussed my findings with the patient and their family and they understand and agree with the treatment plan. All patient / family questions were answered to their satisfaction. Consults/Care Managements Discussions: Per [facility] ER treatment provided: See above Procedures:none Critical Care: None The chart was completed utilizing [employer] voice recognition software. Grammatical errors, random word insertions, pronoun errors, and incomplete sentences are an occasional consequence of this system due to software limitations, ambient noise, and hardware issues. Any formal questions or concerns about the content, text, or information contained within the body of this dictation should be directly addressed to the physician for clarification. Past Med/Surg History Problem List (Updated 04/03/25 @ 14:16 by Taco Menendez DO) Weakness (Acute) Encephalopathy acute (Acute) Acute atelectasis (Acute) Hypoalbuminemia (Acute) Non-ST elevation PR (NSTEMI) (Acute) Complicated urinary tract infection (Acute) Acute UTI (Acute) Dislodged Marks catheter (Acute) Coronary artery disease - reported multivessel PTCA in the - Follows with [facility] AAA (abdominal aortic aneurysm) Per 12/26/23 A/P CTA= Fusiform infrarenal abdominal aortic aneurysm is redemonstrated measuring 5.1 x 3.[address] Ayers Incomplete bladder emptying Bladder stone Gross hematuria Encounter for pre-operative examination Hydronephrosis of left kidney Noted on 10/2023 A/P CT and 11/2023 A/P CTA Cystolithopaxy 11/2023 Memory impairment Left hip pain Facial droop Chronic from Parkinson's disease per Left-sided weakness Chronic from Parkinson's disease per Cervical spinal stenosis B12 deficiency Parkinsonism Ataxia Tremor Skin lesion Cyst of skin Stage 3b chronic kidney disease Chews tobacco Vitamin D deficiency BPH (benign prostatic hyperplasia) Type 2 DM with CKD stage 3 and hypertension Obesity (BMI 30.0-34.9) Foot drop 2-vessel coronary artery disease Secondary hyperparathyroidism (Chronic) Dyslipidemia (Chronic) PAD (peripheral artery disease) Medical History (Updated 04/03/25 @ 14:16 by Taco Menendez DO) History of kidney stones Chronic kidney disease (CKD), stage III (moderate) History of hyperparathyroidism Calcium WNL 01/17/24 Urinary incontinence Dependent on walker for ambulation History of prostate cancer 2002--radiation treatment only PAD (peripheral artery disease) - Per cardio records= ABIs suggestive of moderate disease bilaterally and lower extremity arterial duplex suggested possible distal SFA occlusion on the right and possible multilevel disease on the left including inflow, LBD TEACHER, distal popliteal disease. - Prior claudication symptoms have largely resolved. Hypertension Parkinson's disease follows with Dr. Robby atkinson at 11/2023 appt Cerebrovascular accident 2018--had some drooping on left side/weakness on left side had an "episode" from falling in 02/2023 but per was found not to have a stroke symptoms all due to parkinsons Type 2 diabetes mellitus with kidney complication, with long-term current use of insulin Surgical History History of cystoscopy cystolitholapaxy 11-30-23 @ [facility] Hx of excision of epidermal inclusion cyst (05/21/21) Excision right neck cyst in office 05/21/21 Dr. Locke History of cardiac cath , abn ekg, had angioplasty, no stents placed; f/u dr. diaz, [place] [facility] History of cataract surgery rt/lt Family History Family/Other Diabetes Hypertension Sister Kidney disease Other Cancer No family history of adverse response to anesthesia Denies family history of Ovarian cancer Prostate cancer Myocardial infarction Breast cancer Colorectal cancer Social History (Updated 10/08/24 @ 10:22 by Sue Henry LPN) Smoking Status: Never smoker Tobacco Type: Smokeless Tobacco (Dip or Chew) Age Started Using Tobacco: 22; Age Quit Using Tobacco: 52; packs per day: 1; Second Hand Exposure: No; Do You Dip or Chew Tobacco: Yes (1 can/2 days; advised by nursing); Hx Alcohol Use: No Hx Substance Use: No Preferred Language: Telugu Communication Ability: Effective Communication Ability Comment: per pt can sign own consents. Visual Impairment: Limited Hearing Ability: Hard of Hearing Licensed Nurse Practitioner Required: No Beliefs That Will Affect Care: None marital status: Current Living Situation: Spouse Current Living Situation Comment: with current occupational status: retired How many Children do You have: 0 Feels Safe at Home: Yes Childhood Exposure to Second-Hand Smoke: Yes Diet: diabetic and regular caffeine: Yes during the past year weight has: remained stable Dental Care, Regularly: No Physical Activity Frequency: Does not Exercise Seatbelt Use: sometimes Sunscreen Use: No Do you think of yourself as: straight/heterosexual Sexual Activity: has been sexually active, but not for at least 12 months Gender Identity: Male Assistive Devices: Denture - Upper, Denture - Lower, Glasses, Walker and Other Allergies Allergies Allergy/AdvReac Type Severity Reaction Status Date / Time No Known Drug Allergies Allergy Unknown Verified 04/03/25 10:26 Home Meds Home Medications Medication Instructions Recorded Confirmed blood-glucose meter (OneTouch #1 ea 03/13/19 10/31/24 Ultra2 Meter) calcium carbonate (Calcium 600) 600 mg PO QAM 03/13/19 04/03/25 multivit,calcium,min-folic acid 1 tab PO QAM 01/25/24 04/03/25 240 mcg-D3 25 mcg-lycop 300 mcg tablet (One A Day Men Complete) vitamin B complex 1 tab PO QAM 01/25/24 04/03/25 cholecalciferol (vitamin D3) 25 25 mcg PO DAILY 03/19/24 04/03/25 mcg (1,000 unit) capsule carbidopa 25 mg-levodopa 100 mg 1 tab PO TID 03/22/25 04/03/25 tablet insulin lispro 100 unit/mL 0 unit subcut TID 03/22/25 04/03/25 subcutaneous pen (Humalog KwikPen (U-100) Insulin) cyanocobalamin (vitamin B-12) 1,000 mcg PO QAM 04/03/25 04/03/25 1,000 mcg tablet (Vitamin B-12) Previous Rx's Medication Instructions Recorded syringe with needle 3 mL 25 x 5/8" #6 ea 12/03/21 (BD Luer-Frank Syringe) lancets 30 gauge (OneTouch Delica #100 ea 10/04/22 Lancets) pen needle, diabetic 31 gauge x #200 ea 03/06/24 5/16" (BD Ultra-Fine Short Pen Needle) clopidogrel 75 mg tablet 75 mg PO QAM #90 tabs 07/09/24 insulin degludec 100 unit/mL (3 40 unit (0.4 mL) subcut QPM 90 07/09/24 mL) subcutaneous pen ( #36 mL FlexTouch U-100 insulin) blood sugar diagnostic #200 ea 11/05/24 fosinopril 10 mg tablet 5 mg (1/2 x 10 mg) PO QAM 90 days 12/12/24 #45 tabs tamsulosin 0.4 mg capsule 0.4 mg PO QAM #90 caps 12/16/24 atorvastatin 40 mg tablet 40 mg PO QAM #90 tabs 01/16/25 Results & Data (ED) Vital Signs Vital Signs - 24 hr 04/03/25 09:05 04/03/25 09:47 04/03/25 11:00 Temperature 37.6 C H Temperature Source Oral Pulse Rate 88 89 80 Pulse Rate from SpO2 Sensor Respiratory Rate 18 19 Respiratory Effort / Characteristics Spontaneous Respiratory Depth Normal Respiratory Pattern Regular Blood Pressure 123/68 109/58 L Blood Pressure Mean 86 75 Pulse Oximetry 97 97 Oxygen Delivery Method Room Air Sepsis Recent Fever Within 48 Hours Yes Sepsis New/Unexplained Change in Mental Status Yes Sepsis Action Taken by Nursing No Action Required 04/03/25 11:38 04/03/25 11:38 04/03/25 12:00 Temperature Temperature Source Pulse Rate Pulse Rate from SpO2 Sensor Respiratory Rate Respiratory Effort / Characteristics Respiratory Depth Respiratory Pattern Blood Pressure 108/75 108/75 123/68 Blood Pressure Mean 92 92 79 Pulse Oximetry Oxygen Delivery Method Sepsis Recent Fever Within 48 Hours Sepsis New/Unexplained Change in Mental Status Sepsis Action Taken by Nursing 04/03/25 12:00 04/03/25 12:12 04/03/25 12:30 Temperature Temperature Source Pulse Rate 80 78 Pulse Rate from SpO2 Sensor 80 79 Respiratory Rate 21 32 H Respiratory Effort / Characteristics Respiratory Depth Respiratory Pattern Blood Pressure 123/68 Blood Pressure Mean 79 Pulse Oximetry 93 95 Oxygen Delivery Method Sepsis Recent Fever Within 48 Hours Sepsis New/Unexplained Change in Mental Status Sepsis Action Taken by Nursing 04/03/25 12:45 04/03/25 13:00 04/03/25 13:00 Temperature Temperature Source Pulse Rate 79 Pulse Rate from SpO2 Sensor 79 Respiratory Rate 19 Respiratory Effort / Characteristics Respiratory Depth Respiratory Pattern Blood Pressure 112/59 L 112/59 L Blood Pressure Mean 78 78 Pulse Oximetry 95 Oxygen Delivery Method Sepsis Recent Fever Within 48 Hours Sepsis New/Unexplained Change in Mental Status Sepsis Action Taken by Nursing 04/03/25 13:00 04/03/25 13:00 04/03/25 13:12 Temperature Temperature Source Pulse Rate 80 85 Pulse Rate from SpO2 Sensor 80 78 Respiratory Rate 37 H 17 Respiratory Effort / Characteristics Respiratory Depth Respiratory Pattern Blood Pressure 112/59 L Blood Pressure Mean 78 Pulse Oximetry 96 96 Oxygen Delivery Method Sepsis Recent Fever Within 48 Hours Sepsis New/Unexplained Change in Mental Status Sepsis Action Taken by Nursing Laboratory Data 04/03/25 09:22 04/03/25 09:22 Lab Results 04/03/25 04/03/25 04/03/25 Range/Units 09:22 09:38 09:54 WBC 18.64 H (4.8-10.8) K/ul RBC 3.59 L (4.70-6.10) M/uL Hgb 10.9 L (14.0-18.0) g/dl Hct 32.5 L (42.0-52.0) % MCV 90.5 (80.0-100.0) fL MCH 30.4 (25.0-34.0) pg MCHC 33.5 (32.0-36.0) g/dL RDW Std Deviation 48.9 H (36.4-46.3) fL RDW Coeff of Josr 14.7 H (11.5-14.5) % Plt Count 165 (130-400) K/uL MPV 9.6 (9.4-12.4) fL Immature Gran % (Auto) 0.5 % Neut % (Auto) 87.5 % Lymph % (Auto) 4.9 % [place] % (Auto) 6.9 % Eos % (Auto) 0.0 % Baso % (Auto) 0.2 % Neut # (Auto) 16.32 H (1.40-6.50) K/uL Lymph # (Auto) 0.91 L (1.20-3.40) K/uL [place] # (Auto) 1.28 H (0.11-0.59) K/uL Eos # (Auto) 0.00 (0.00-0.50) K/uL Baso # (Auto) 0.04 (0.00-0.20) K/uL Immature Gran # (Auto) 0.09 (0.01-0.20) K/uL PT 11.7 (9.0-12.0) Seconds INR 1.1 (0.9-1.1) APTT 32 H (21-31) Seconds PTT Ratio 1.2 VBG pH 7.42 H (7.36-7.41) VBG pCO2 39 (38-50) mmHg VBG pO2 52 mmHg VBG HCO3 25 mmol/L VBG O2 Saturation 84.2 % VBG Base Excess 0.8 mEq/L Sodium 136 (136-145) mmol/L Potassium 3.9 (3.5-5.1) mmol/L Chloride 104 (98-107) mmol/L Carbon Dioxide 25 (21-32) mmol/L Anion Gap 7 (3-11) BUN 29 H (6-23) mg/dl Creatinine 1.38 (0.6-1.4) mg/dl Est Cr Clr Drug Dosing 44.9 ml/min eGFR 49.49 BUN/Creatinine Ratio 21.0 H (10-20) Glucose 157 H (70-99(Fasting)) mg/dl Lactate 0.7 (0.4-2.0) mmol/L Calcium 8.2 L (8.6-10.3) mg/dl Magnesium 2.0 (1.7-2.4) mg/dl Total Bilirubin 0.8 (0.2-1.0) mg/dl Direct Bilirubin 0.2 (0-0.2) mg/dl AST 14 (13-39) U/L ALT 14 (7-52) U/L Alkaline Phosphatase 67 (34-104) U/L Troponin I High Sens 377.7 H* (0-20) pg/ml Total Protein 6.4 (6.0-8.3) gm/dl Albumin 3.3 L (3.4-5.0) gm/dl Procalcitonin 0.27 (0-0.5) ng/ml Urine Color Urine Appearance (Clear) Urine pH (4.5-7.5) Ur Specific [employer] Mdl (1.000-1.030) Urine Protein (Negative) Urine Glucose (UA) (Negative) Urine Ketones (Negative) Urine Blood (Negative) Urine Nitrite (Negative) Urine Bilirubin (Negative) Urine Urobilinogen (Negative) Ur Leukocyte Esterase (Negative) Urine WBC (Auto) (0-5) /hpf Urine RBC (Auto) (0-2) /hpf U Hyaline Cast (Auto) (0-2) /lpf U Epithel Cells (Auto) (0-2) /hpf Urine Bacteria (Auto) (None Seen) Urine Comment Adenovirus (PCR) Not Detected (NotDetected) B. pertussis DNA (PCR) Not Detected (NotDetected) B.parapertussis DNA PCR Not Detected (NotDetected) C. pneumoniae DNA (PCR) Not Detected (NotDetected) Coronavirus OC43 (PCR) Not Detected (NotDetected) Coronavirus HKU1 (PCR) Not Detected (NotDetected) Coronavirus 229E (PCR) Not Detected (NotDetected) SARS-CoV-2 (PCR) Not Detected (NotDetected) Coronavirus NL63 (PCR) Not Detected (NotDetected) Human Metapneumovir PCR Not Detected (NotDetected) Influenza Type A (PCR) Not Detected (NotDetected) Influenza Type B (PCR) Not Detected (NotDetected) M. pneumoniae (PCR) Not Detected (NotDetected) Parainfluenza 1 (PCR) Not Detected (NotDetected) Parainfluenza 2 (PCR) Not Detected (NotDetected) Parainfluenza 3 (PCR) Not Detected (NotDetected) Parainfluenza 4 (PCR) Not Detected (NotDetected) RSV (PCR) Not Detected (NotDetected) Entero/Rhino (PCR) Not Detected (NotDetected) 04/03/25 04/03/25 Range/Units 10:15 11:29 WBC (4.8-10.8) K/ul RBC (4.70-6.10) M/uL Hgb (14.0-18.0) g/dl Hct (42.0-52.0) % MCV (80.0-100.0) fL MCH (25.0-34.0) pg MCHC (32.0-36.0) g/dL RDW Std Deviation (36.4-46.3) fL RDW Coeff of Josr (11.5-14.5) % Plt Count (130-400) K/uL MPV (9.4-12.4) fL Immature Gran % (Auto) % Neut % (Auto) % Lymph % (Auto) % [place] % (Auto) % Eos % (Auto) % Baso % (Auto) % Neut # (Auto) (1.40-6.50) K/uL Lymph # (Auto) (1.20-3.40) K/uL [place] # (Auto) (0.11-0.59) K/uL Eos # (Auto) (0.00-0.50) K/uL Baso # (Auto) (0.00-0.20) K/uL Immature Gran # (Auto) (0.01-0.20) K/uL PT (9.0-12.0) Seconds INR (0.9-1.1) APTT (21-31) Seconds PTT Ratio VBG pH (7.36-7.41) VBG pCO2 (38-50) mmHg VBG pO2 mmHg VBG HCO3 mmol/L VBG O2 Saturation % VBG Base Excess mEq/L Sodium (136-145) mmol/L Potassium (3.5-5.1) mmol/L Chloride (98-107) mmol/L Carbon Dioxide (21-32) mmol/L Anion Gap (3-11) BUN (6-23) mg/dl Creatinine (0.6-1.4) mg/dl Est Cr Clr Drug Dosing ml/min eGFR BUN/Creatinine Ratio (10-20) Glucose (70-99(Fasting)) mg/dl Lactate (0.4-2.0) mmol/L Calcium (8.6-10.3) mg/dl Magnesium (1.7-2.4) mg/dl Total Bilirubin (0.2-1.0) mg/dl Direct Bilirubin (0-0.2) mg/dl AST (13-39) U/L ALT (7-52) U/L Alkaline Phosphatase (34-104) U/L Troponin I High Sens 486.4 H* D (0-20) pg/ml Total Protein (6.0-8.3) gm/dl Albumin (3.4-5.0) gm/dl Procalcitonin (0-0.5) ng/ml Urine Color Yellow Urine Appearance Turbid A (Clear) Urine pH 5.5 (4.5-7.5) Ur Specific [employer] Mdl 1.014 (1.000-1.030) Urine Protein 2+ H (Negative) Urine Glucose (UA) Negative (Negative) Urine Ketones Negative (Negative) Urine Blood 3+ H (Negative) Urine Nitrite Negative (Negative) Urine Bilirubin Negative (Negative) Urine Urobilinogen Negative (Negative) Ur Leukocyte Esterase 3+ H (Negative) Urine WBC (Auto) >50 H (0-5) /hpf Urine RBC (Auto) 11-20 H (0-2) /hpf U Hyaline Cast (Auto) 6-10 H (0-2) /lpf U Epithel Cells (Auto) 0-2 (0-2) /hpf Urine Bacteria (Auto) 3+ H (None Seen) Urine Comment Adenovirus (PCR) (NotDetected) B. pertussis DNA (PCR) (NotDetected) B.parapertussis DNA PCR (NotDetected) C. pneumoniae DNA (PCR) (NotDetected) Coronavirus OC43 (PCR) (NotDetected) Coronavirus HKU1 (PCR) (NotDetected) Coronavirus 229E (PCR) (NotDetected) SARS-CoV-2 (PCR) (NotDetected) Coronavirus NL63 (PCR) (NotDetected) Human Metapneumovir PCR (NotDetected) Influenza Type A (PCR) (NotDetected) Influenza Type B (PCR) (NotDetected) M. pneumoniae (PCR) (NotDetected) Parainfluenza 1 (PCR) (NotDetected) Parainfluenza 2 (PCR) (NotDetected) Parainfluenza 3 (PCR) (NotDetected) Parainfluenza 4 (PCR) (NotDetected) RSV (PCR) (NotDetected) Entero/Rhino (PCR) (NotDetected) Administered Medications Discontinued Medications Sodium Chloride (Nss) 500 mls @ 999 mls/hr IV .Q31M GET Stop: 04/03/25 09:45 Last Infusion: 04/03/25 11:59 Dose: Infused Documented By: Admin: 04/03/25 09:27 Dose: 999 mls/hr Documented By: NA Cefepime HCl (Maxipime 2000mg) 2,000 mg in 20 mls @ 5 mls/min IV NOW STA; Protocol Stop: 04/03/25 09:18 Last Admin: 04/03/25 09:51 Dose: 5 mls/min Documented By: NA Doxycycline Hyclate 100 mg/ (Dextrose) 100 mls @ 50 mls/hr IV NOW STA Stop: 04/03/25 12:09 Last Infusion: 04/03/25 12:51 Dose: Infused Documented By: Admin: 04/03/25 10:45 Dose: 50 mls/hr Documented By: NA Imaging Data Radiologist's Impression: Chest X-Ray 04/03/25 09:15 XR chest 1V portable CLINICAL HISTORY: Sepsis COMPARISON STUDY: 03/10/2023 FINDINGS: Stable mild cardiomegaly without pulmonary vascular congestion. Inspiration is shallow. There is mild stranding left lung base. No consolidation or pleural effusion seen otherwise. No pneumothorax. IMPRESSION: Atelectasis versus early pneumonia left lung base. ACT 112: Negative or not required by law. Electronically signed by: Anil Blandon M.D. 04/03/2025 9:45 AM Discharge Plan Visit Data Chief Complaint: Altered Mental Status ED Provider: Taco Menendez Discharge Problem: Complicated urinary tract infection, Non-ST elevation PR (NSTEMI), Hypoalbuminemia, Acute atelectasis, Encephalopathy acute, Weakness Patient Disposition: Admitted As Inpatient Condition: Serious Forms Stand Alone Forms: My [facility] [employer] Prescriptions Prescriptions: No Action (DME) lancets [OneTouch Delica Lancets] 30 gauge misc See Rx Instructions .Route Qty: 100 11RF Rx Instructions: Test three times daily (DME) pen needle, diabetic [BD Ultra-Fine Short Pen Needle] 31 gauge x 5/16" needle See Dose Instructions .ROUTE .MEDSUPPLY Qty: 200 3RF Rx Instructions: Use with insulin pen twice daily Dx:E11.9 clopidogrel 75 mg tablet 75 mg PO QAM Qty: 90 3RF insulin degludec [Tresiba FlexTouch U-100] 100 unit/mL (3 mL) insulin pen 40 unit subcut QPM 90 Days Qty: 36 3RF (DME) blood sugar diagnostic Strip See Dose Instructions .ROUTE .MEDSUPPLY Qty: 200 11RF Rx Instructions: USE ONE STRIP TO CHECK GLUCOSE 3 TIMES DAILY E11.9 fosinopril 10 mg tablet 5 mg PO QAM 90 Days Qty: 45 3RF tamsulosin 0.4 mg capsule 0.4 mg PO QAM Qty: 90 3RF atorvastatin 40 mg tablet 40 mg PO QAM Qty: 90 3RF calcium carbonate [Calcium 600] 600 mg calcium (1,500 mg) tablet 600 mg PO QAM Patient Comments: Unable to verify OTC meds at this date/time. (DME) blood-glucose meter [OneTouch Ultra2 Meter] misc See Dose Instructions .ROUTE .MEDSUPPLY Qty: 1 Rx Instructions: As directed (DME) BD Luer-Frank Syringe 3 mL 25 x 5/8" syringe See Rx Instructions .Route Qty: 6 0RF Rx Instructions: Use with Vitamin B12 injectable solution cholecalciferol (vitamin D3) 25 mcg (1,000 unit) capsule 25 mcg PO DAILY Patient Comments: Unable to verify OTC meds at this date/time. vitamin B complex Tablet 1 tab PO QAM Patient Comments: Unable to verify OTC meds at this date/time. One A Day Men Complete 240-25-300 mcg Tablet 1 tab PO QAM Patient Comments: Unable to verify OTC meds at this date/time. carbidopa-levodopa 25-100 mg tablet 1 tab PO TID Rx Instructions: TAKE 1 TABLET BY MOUTH THREE TIMES DAILY insulin lispro [Humalog KwikPen Insulin] 100 unit/mL insulin pen 0 unit SQ TID Patient Comments: Last filled 11/2023 x90 day supply. Unable to verify if pt still taking or not. Original Directions: 20units-25units TID as directed - 04/03/25 cyanocobalamin (vitamin B-12) [Vitamin B-12] 1,000 mcg Tablet 1,000 mcg PO QAM
[2025-04-03] MEDS: SODIUM CHLORIDE 0.9% 500 ML IV SCH (09:27)
[2025-04-03 09:46] LABS: Base Excess VBG 0.8 mEq/L; HCO3 VBG 25 mmol/L; Oxygen Saturation VBG 84.2 %; PCO2 VBG 39 mmHg (38-50); PO2 VBG 52 mmHg; pH VBG 7.42 (7.36-7.41)
--- NOTE | 2025-04-03 09:46 | XRay Report ---
XR chest 1V portable CLINICAL HISTORY: Sepsis COMPARISON STUDY: 03/10/2023 FINDINGS: Stable mild cardiomegaly without pulmonary vascular congestion. Inspiration is shallow. The re is mild stranding left lung base. No consolidation or pleural effusion seen otherwise. No pneumoth orax. IMPRESSION: Atelectasis versus early pneumonia left lung base. ACT 112: Negative or not required by law. Electronically signed by: Anil Blandon M.D. 04/03/2025 9:45 AM
[2025-04-03] MEDS: CEFEPIME 2000MG 2,000 MG/20 ML SYR IV STA (09:51)
[2025-04-03 10:00] LABS: Hematocrit (blood only) 32.5 % (42.0-52.0); Hemoglobin 10.9 g/dl (14.0-18.0); Immature Granulocytes # (auto) 0.09 K/uL (0.01-0.20); Immature Granulocytes % (auto) 0.5 %; Mean Corpuscular Hemoglobin 30.4 pg (25.0-34.0); Mean Corpuscular Volume 90.5 fL (80.0-100.0); Platelet Count 165 K/uL (130-400); RDW Standard Deviation 48.9 fL (36.4-46.3); Red Blood Count 3.59 M/uL (4.70-6.10); White Blood Count 18.64 K/ul (4.8-10.8)
[2025-04-03 10:18] LABS: Alanine Aminotransferase 14.0 U/L (7-52); Alkaline Phosphatase 67.0 U/L (34-104); Anion Gap 7.0 (3-11); Bilirubin,Total 0.8 mg/dl (0.2-1.0); Blood Urea Nitrogen 29.0 mg/dl (6-23); Calcium 8.2 mg/dl (8.6-10.3); Carbon Dioxide 25.0 mmol/L (21-32); Chloride 104.0 mmol/L (98-107); Creatinine Clr Calc Pharmacy 44.9 ml/min; Glucose 157.0 mg/dl (70-99(Fasting)); Magnesium 2.0 mg/dl (1.7-2.4); Potassium 3.9 mmol/L (3.5-5.1); Sodium 136.0 mmol/L (136-145); Total Protein 6.4 gm/dl (6.0-8.3)
[2025-04-03 10:26] LABS: INR 1.1 (0.9-1.1); Partial Thromboplastin Time 32 Seconds (21-31); Prothrombin Time 11.7 Seconds (9.0-12.0)
[2025-04-03] MEDS: DOXYCYCLINE HYCLATE 100 MG in DEXTROSE 5% MINI-B 100 ML IV STA (10:45)
[2025-04-03 10:47] LABS: Appearance Urine Turbid (Clear); Bacteria Urine Automated 3+ (None Seen); Epithelial Cell Urine Auto 0-2 /hpf (0-2); Glucose Urine UA Negative (Negative); WBC Urine Automated >50 /hpf (0-5)
[2025-04-03 10:51] LABS: Chlamydia pneumoniae PCR Not Detected (NotDetected); Coronavirus 229E PCR Not Detected (NotDetected); Coronavirus CoV-2 (COVID19)PCR Not Detected (NotDetected); Coronavirus HKU1 PCR Not Detected (NotDetected); Coronavirus NL63 PCR Not Detected (NotDetected); Coronavirus OC43PCR Not Detected (NotDetected); Human Metapneumovirus PCR Not Detected (NotDetected); Parainfluenza Virus 1 PCR Not Detected (NotDetected); Parainfluenza Virus 2 PCR Not Detected (NotDetected); Parainfluenza Virus 3 PCR Not Detected (NotDetected); Parainfluenza Virus 4 PCR Not Detected (NotDetected); Respiratory Syncytial VirusPCR Not Detected (NotDetected); Rhinovirus/Enterovirus PCR Not Detected (NotDetected)
--- NOTE | 2025-04-03 11:48 | History & Physical Report ---
Date of Service April 03, 2025 Assessment & Plan (1) Sepsis: (2) Catheter-associated urinary tract infection: (3) Encephalopathy acute: (4) Elevated troponin: (5) Type 2 diabetes mellitus with kidney complication, with long-term current use of insulin: Plan 89-year-old man with CKD, AAA, CAD, BPH with urinary retention and chronic urethral catheter, Parkinsonism, memory impairment and prior CVA with residual deficits including weakness and facial droop. Admitted with sepsis and acute encephalopathy probably related to CAUTI. Was on augmentin po within 48h of illness, however. # sepsis due to probable CAUTI. Chronic ramirez catheter. Complex underlying urological problems including remote prostate cancer s/p XRT, incomplete voiding, bladder stones -cefepime -dose of doxy in ED for possible L base pneumonia, however, I think pneumonia unlikely since he has no cough/hypoxia, procalcitonin normal, and possible infiltrate/atelectasis is minimal on CXR. Monitor. -follow up urine and blood cultures -if recurrent/persisting E. coli imaging of urinary tract to exclude stones, obstruction is warranted as well as longer course of antibiotics. Prostatitis is possible. Check PSA. -AM BMP CBC procal #Acute metabolic encephalopathy - caused by infection #Dehydration -IVF given in ED, continue 1/2 NS -avoid any sedating medications #Elevated HS-troponin - 400s - probably myocardial demand ischemia related to sepsis, however NSTEMI is possible -reassuring stress test 2 years ago. some possible mild apical ischemia, normal EF -trend troponin -TTE #CKD-3 - Cr near baseline -hold fosinopril -IVF -AM BMP #DM type 2 -continue short acting / premeal insulin -hold basal insulin for now (home 40 units) #Parkinsonism -cont carbidopa/levodopa #History of stroke with residual L sided weakness and facial droop #CAD with remote PCI in 1980s #PAD -cont statin and plavix DVT ppx - SQ heparin DNR/DNI and no escalation to ICU level of care per my discussion with his and review of his living will History of Present Illness Chief Complaint: altered mental status Primary Care Provider: Keith Yung, DO 89-year-old man with CKD, AAA, CAD, BPH with urinary retention and chronic urethral catheter, Parkinsonism, memory impairment and prior CVA with residual deficits including weakness and facial droop. Brought in by ambulance with weakness and lethargy. Cannot provide history due to lethargy, history obtained from his at bedside. He was seen in ED 03/22 for catheter dislodgement, treated with augmentin x 7d for amado-sensitive E. coli in urine. Finished ABX Monday (48h ago). Yesterday slept all day, which is not necessarily unusual, this AM lethargic and weak with temp 103. He's able to answer yes/no questions about symptoms, denies cough, chest pain, dyspnea, abdominal pain, N/V/D, suprapubic or flank pain. He has a sacral red spot but not open. According to his he usually walks with walker, talks, oriented to situation. He has a lot of falls and Parkinsonian tremors getting worse recently Allergies Allergy/AdvReac Type Severity Reaction Status Date / Time No Known Drug Allergies Allergy Unknown Verified 04/03/25 10:26 Home Medications Medication Instructions Recorded Confirmed Type blood-glucose meter (illuminate SolutionsTouch #1 ea 03/13/19 10/31/24 History Ultra2 Meter) calcium carbonate (Calcium 600) 600 mg PO QAM 03/13/19 04/03/25 History syringe with needle 3 mL 25 x 5/8" #6 ea 12/03/21 10/31/24 Rx (BD Luer-Frank Syringe) lancets 30 gauge (OneTouch Delica #100 ea 10/04/22 10/31/24 Rx Lancets) multivit,calcium,min-folic acid 1 tab PO QAM 01/25/24 04/03/25 History 240 mcg-D3 25 mcg-lycop 300 mcg tablet (One A Day Men Complete) vitamin B complex 1 tab PO QAM 01/25/24 04/03/25 History pen needle, diabetic 31 gauge x #200 ea 03/06/24 10/31/24 Rx 5/16" (BD Ultra-Fine Short Pen Needle) cholecalciferol (vitamin D3) 25 25 mcg PO DAILY 03/19/24 04/03/25 History mcg (1,000 unit) capsule clopidogrel 75 mg tablet 75 mg PO QAM #90 tabs 07/09/24 04/03/25 Rx insulin degludec 100 unit/mL (3 40 unit (0.4 mL) subcut QPM 90 07/09/24 04/03/25 Rx mL) subcutaneous pen (Tresiba days #36 mL FlexTouch U-100 insulin) blood sugar diagnostic #200 ea 11/05/24 Rx fosinopril 10 mg tablet 5 mg (1/2 x 10 mg) PO QAM 90 days 12/12/24 04/03/25 Rx #45 tabs tamsulosin 0.4 mg capsule 0.4 mg PO QAM #90 caps 12/16/24 04/03/25 Rx atorvastatin 40 mg tablet 40 mg PO QAM #90 tabs 01/16/25 04/03/25 Rx carbidopa 25 mg-levodopa 100 mg 1 tab PO TID 03/22/25 04/03/25 History tablet insulin lispro 100 unit/mL 0 unit subcut TID 03/22/25 04/03/25 History subcutaneous pen (Humalog KwikPen (U-100) Insulin) cyanocobalamin (vitamin B-12) 1,000 mcg PO QAM 04/03/25 04/03/25 History 1,000 mcg tablet (Vitamin B-12) Past Med/Surg History Problem List (Updated 04/03/25 @ 15:17 by Rita Mock MD) Elevated troponin Catheter-associated urinary tract infection Sepsis Weakness (Acute) Encephalopathy acute (Acute) Acute atelectasis (Acute) Hypoalbuminemia (Acute) Non-ST elevation CA (NSTEMI) (Acute) Complicated urinary tract infection (Acute) Acute UTI (Acute) Dislodged Ramirez catheter (Acute) Coronary artery disease - reported multivessel PTCA in the 1980s - Follows with [facility] AAA (abdominal aortic aneurysm) Per 12/26/23 A/P CTA= Fusiform infrarenal abdominal aortic aneurysm is redemonstrated measuring 5.1 x 3.[address] Ayers Incomplete bladder emptying Bladder stone Gross hematuria Encounter for pre-operative examination Hydronephrosis of left kidney Noted on 10/2023 A/P CT and 11/2023 A/P CTA Cystolithopaxy 11/2023 Memory impairment Left hip pain Facial droop Chronic from Parkinson's disease per Left-sided weakness Chronic from Parkinson's disease per Cervical spinal stenosis B12 deficiency Parkinsonism Ataxia Tremor Skin lesion Cyst of skin Stage 3b chronic kidney disease Chews tobacco Vitamin D deficiency BPH (benign prostatic hyperplasia) Type 2 DM with CKD stage 3 and hypertension Obesity (BMI 30.0-34.9) Foot drop 2-vessel coronary artery disease Secondary hyperparathyroidism (Chronic) Dyslipidemia (Chronic) PAD (peripheral artery disease) Medical History History of kidney stones Chronic kidney disease (CKD), stage III (moderate) History of hyperparathyroidism Calcium WNL 01/17/24 Urinary incontinence Dependent on walker for ambulation History of prostate cancer 2002--radiation treatment only PAD (peripheral artery disease) - Per cardio records= ABIs suggestive of moderate disease bilaterally and lower extremity arterial duplex suggested possible distal SFA occlusion on the right and possible multilevel disease on the left including inflow, [employer]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 - Prior claudication symptoms have largely resolved. Hypertension Parkinson's disease follows with Dr. Robby atkinson at 11/2023 appt Cerebrovascular accident 2017--had some drooping on left side/weakness on left side had an "episode" from falling in 02/2023 but per was found not to have a stroke symptoms all due to parkinsons Type 2 diabetes mellitus with kidney complication, with long-term current use of insulin Surgical History History of cystoscopy cystolitholapaxy 11-30-23 @ [facility] Hx of excision of epidermal inclusion cyst (05/21/21) Excision right neck cyst in office 05/21/21 Dr. Locke History of cardiac cath , abn ekg, had angioplasty, no stents placed; f/u dr. diaz, in cardio History of cataract surgery rt/lt Family History Family/Other Diabetes Hypertension Sister Kidney disease Other Cancer No family history of adverse response to anesthesia Denies family history of Ovarian cancer Prostate cancer Myocardial infarction Breast cancer Colorectal cancer Social History Smoking Status: Never smoker Tobacco Type: Smokeless Tobacco (Dip or Chew) Age Started Using Tobacco: 22; Age Quit Using Tobacco: 52; packs per day: 1; Second Hand Exposure: No; Do You Dip or Chew Tobacco: Yes (1 can/2 days; advised by nursing); Hx Alcohol Use: No Hx Substance Use: No Preferred Language: Rw[place] Communication Ability: Effective Communication Ability Comment: per pt can sign own consents. Visual Impairment: Limited Hearing Ability: Hard of Hearing Air Brake Man Required: No Beliefs That Will Affect Care: None marital status: Current Living Situation: Spouse Current Living Situation Comment: with current occupational status: retired How many Children do You have: 0 Feels Safe at Home: Yes Childhood Exposure to Second-Hand Smoke: Yes Diet: diabetic and regular caffeine: Yes during the past year weight has: remained stable Dental Care, Regularly: No Physical Activity Frequency: Does not Exercise Seatbelt Use: sometimes Sunscreen Use: No Do you think of yourself as: straight/heterosexual Sexual Activity: has been sexually active, but not for at least 12 months Gender Identity: Male Assistive Devices: Denture - Upper, Denture - Lower, Glasses, Walker and Other Review of Systems 2 Review of Systems: Unobtainable due to reduced consciousness UTO other than limited as per HPI Physical Exam 2 Physical Exam: Last 24h vitals reviewed GEN: sleepy/lethargic, elderly HEENT: pupils equal, sclerae anicteric, dry MM RESP: normal WOB, CTAB excepting bibasilar crackles CV: reg no mrg distant ABD: soft/nt/nd +BT : ramirez with yellow cloudy urine. Hypospadias. No inflammation of glans penis, groins SKIN: warm and dry, no generalized rashes EXT: no LE edema, wwp NEURO: lethargic and O xperson, [facility] "2nd or 3rd floor" but not to situation. slight R facial droop. R side weaker unable to assess right now, moving 4 ext. Rest tremor RUE Results & Data Results & Data Vital Signs (Past 12 Hours) Vital Signs Temp Pulse Resp BP Pulse Ox O2 Del Method 04/03/25 11:00 80 19 109/58 L 97 04/03/25 09:47 89 04/03/25 09:05 37.6 C H 88 18 123/68 97 Room Air Laboratory Results 04/03/25 09:22 04/03/25 09:22 vbg wnl Tn 377 Resp biofire neg Procal 0.27 UA with pyuria Diagnostic Findings Personally reviewed CXR film - there is left base atelectasis vs subtle/mild infiltrate and possible tiny left pleural effusion ECG Additional Comments: Personally reviewed EKG tracing - NSR with IVCD and fusion complex, no acute ischemic changes PG Care Time/CCT Total # of Minutes Spent Total Time Spent with Patient: Total time spent is greater than 50% in coordination of care (as documented) at patient's floor/unit and/or counseling patient: Coding Level of Care Code 32416 INT INP/OBS CARE 3/75MIN Diagnoses Sepsis A41.9 Catheter-associated urinary tract infection T83.511A; N39.0 Encephalopathy acute G93.40 Elevated troponin R79.89 Type 2 diabetes mellitus with kidney complication, with long-term current use of insulin E11.29; Z79.4
--- NOTE | 2025-04-03 11:52 | Electrocardiogram Report ---
Test Reason : Blood Pressure : */* mmHG Vent. Rate : 89 BPM Atrial Rate : 89 BPM P-R Int : 148 ms QRS Dur : 128 ms QT Int : 396 ms P-R-T Axes : 8 -59 7 degrees QTcB Int : 481 ms Sinus rhythm with Fusion complexes Left axis deviation Non-specific intra-ventricular conduction block Poor R wave progression, consider anterior TN vs. lead placement vs. LVH Abnormal ECG When compared with ECG of 17-Jan-2024 10:32, (unconfirmed) Fusion complexes are now Present Non-specific intra-ventricular conduction block has replaced RSR' pattern in V1 Confirmed by Kailash Guidry ([id number]) on 04/03/2025 11:52:03 AM Referred By: REFERRED SELF Confirmed By: Kailash Guidry
[2025-04-03] MEDS ORDERED: CARBOHYDRATES FOR HYPOGLYCEMIA PO PRN (15:02)
[2025-04-03] MEDS ORDERED: POLYETHYLENE (MIRALAX) 17 GM PACK PO PRN (15:02)
[2025-04-03] MEDS ORDERED: ACETAMINOPHEN 325 MG TAB PO PRN (15:02)
[2025-04-03] MEDS ORDERED: MAGNESIUM HYDROXIDE SUSP 30 ML UDC PO PRN (15:02)
[2025-04-03] MEDS ORDERED: DEXTROSE 50% 50 ML SYRINGE IV PRN (15:02)
[2025-04-03] MEDS ORDERED: ALUMINUM/MAGNESIUM SUSP 30 ML UDC PO PRN (15:02)
[2025-04-03] MEDS ORDERED: GLUCOSE 40% GEL 15 GM TUBE PO PRN (15:02)
[2025-04-03] MEDS ORDERED: GLUCOSE 10 TAB/TUBE PO PRN (15:02)
[2025-04-03] MEDS ORDERED: ONDANSETRON INJ 2 MG/ML 2 ML VIAL IV PRN (15:02)
[2025-04-03] MEDS ORDERED: GLUCAGON FOR INJ 1 MG VIAL SQ PRN (15:02)
[2025-04-03] MEDS: CARBIDOPA/LEVODOPA 25/100MG TAB PO SCH (16:29)
--- NOTE | 2025-04-03 16:30 | CT Scan Report ---
Technique: Axial computed tomography images were obtained of the abdomen and pelvis without intravenous contrast. No prior examination is available for comparison Findings: The liver is overall of normal size, attenuation, and contour with no sign of cirrhosis or significant fatty infiltration. No definite liver mass lesion is seen on this noncontrast study. A small gallstone is present. There is no definite sign of acute cholecystitis. No bile duct dilatation is noted. The spleen is of normal size. No focal splenic lesion is evident. The pancreas appears normal with no sign of acute or chronic pancreatitis and no mass lesion noted. The pancreatic duct is of normal caliber. The adrenal glands appear unremarkable. No renal or proximal ureteral calculi are seen. There is moderate severity left hydronephrosis and left hydroureter. No definite renal mass lesion is identified. There is a 3.7 cm cyst at the inferior right kidney. There is an infrarenal abdominal aortic aneurysm, measuring up to 5.6 cm anteroposterior. There is extensive multifocal atherosclerotic plaque. No abdominal adenopathy is seen. There is a small umbilical hernia containing fat. The stomach appears normal. There is no sign of small bowel obstruction. There is constipation. There is no sign of appendicitis. No free intraperitoneal fluid or air is identified. The left hydroureter abruptly terminates approximately 2 cm from the left ureterovesicular junction. The bladder is decompressed, containing a Marks catheter. The iliac arteries are of normal caliber. No pelvic adenopathy is noted. The prostate is enlarged measuring 5.1 cm. There is a small right inguinal hernia containing fat. There are minimal bilateral pleural effusions. There is mild subsegmental atelectasis in lower lobes. There is extensive coronary atherosclerosis. There is grade 1 anterolisthesis at L4-5. There is an L3 compression fracture. No focal osseous lesion is seen Impression: 1. Moderate severity left hydronephrosis with left hydroureter that abruptly terminates in the distal left ureter. No obstructing calculus is seen. Possible etiologies include a ureteral stricture and transitional cell carcinoma 2. Right renal cyst 3. 5.6 cm abdominal aortic aneurysm and extensive atherosclerosis 4. Cholelithiasis without evidence of acute cholecystitis 5. Minimal bilateral pleural effusions 6. Umbilical and right inguinal hernias containing only fat 7. Enlarged prostate. Correlation with PSA levels may be useful 8. L3 compression fracture of indeterminate age ACT 112: Positive. There are findings on this exam that require communication between the performing entity and the patient following Patient Test Result Information Act ([place] ACT 112) guidelines. Electronically signed by Nilesh Davila 04-03-2025 4:29 PM
[2025-04-03] MEDS: LACTATED RINGER'S 1,000 ML IV SCH (16:31)
[2025-04-03] MEDS: INSULIN ASPART PER UNIT CHARGE SC SCH (16:35)
--- NOTE | 2025-04-03 18:05 | Urology Consultation ---
Date of Consultation April 03, 2025 Assessment & Plan (1) Catheter-associated urinary tract infection: (2) Hydronephrosis: Plan 89-year-old male currently admitted with urinary tract infection, left hydronephrosis seen on CT scan. Urine is concerning for infection. Agree with broad-spectrum antibiotics, narrowing coverage as culture data becomes available. Since his left hydronephrosis is stable from prior and his reports that he seems to be improving since starting antibiotics and hydration, we will hold off acute intervention for now. We discussed the possible need for cystoscopy, left retrograde pyelogram and left ureteral stent placement, especially if he starts to worsen or fails to make clinical progress with conservative measures. We discussed risks of bleeding, infection, injury to urinary tract, need for additional procedures. She is concerned that he has been told he would was a high risk anesthesia candidate previously. We will hold off any intervention for now, but will make him n.p.o. at midnight and plan to reassess in the morning. History of Present Illness Attending Physician: Rita Mock MD History of Present Illness This is an 89-year-old male followed by urology for history of prostate cancer (treated with EBRT, 2002) and lower urinary tract symptoms (on tamsulosin), incomplete bladder emptying. Recently incomplete bladder emptying has been managed with indwelling Marks catheter. He is brought to the emergency department on 04/03/2025 after his noticed that he was weak and lethargic. She also noted that he was febrile to approximately 103 F. Workup in the ED was notable for leukocytosis (WBC 18.64). Creatinine was 1.38 which is close to his baseline. Urinalysis demonstrated 3+ bacteria, 3+ leukocyte esterase, negative nitrites. A CT scan of the abdomen and pelvis was performed. I independently reviewed these images from 04/03/2025. Both kidneys are in normal position. There is hydronephrosis of the left kidney as well as left hydroureter extending down to the bladder. This appears fairly similar to prior imaging, although there is new perinephric stranding. Bladder is decompressed around Marks catheter. At the bedside, Major is asleep, however his reports that he was recently awake and having some dinner. He seems to have more energy and be more alert than he was this morning. Allergies Allergy/AdvReac Type Severity Reaction Status Date / Time No Known Drug Allergies Allergy Unknown Verified 04/03/25 10:26 Home Medications Medication Instructions Recorded Confirmed Type blood-glucose meter (OneTouch #1 ea 03/13/19 10/31/24 History Ultra2 Meter) calcium carbonate (Calcium 600) 600 mg PO QAM 03/13/19 04/03/25 History syringe with needle 3 mL 25 x 5/8" #6 ea 12/03/21 10/31/24 Rx (BD Luer-Frank Syringe) lancets 30 gauge (OneTouch Delica #100 ea 10/04/22 10/31/24 Rx Lancets) multivit,calcium,min-folic acid 1 tab PO QAM 01/25/24 04/03/25 History 240 mcg-D3 25 mcg-lycop 300 mcg tablet (One A Day Men Complete) vitamin B complex 1 tab PO QAM 01/25/24 04/03/25 History pen needle, diabetic 31 gauge x #200 ea 03/06/24 10/31/24 Rx 5/16" (BD Ultra-Fine Short Pen Needle) cholecalciferol (vitamin D3) 25 25 mcg PO DAILY 03/19/24 04/03/25 History mcg (1,000 unit) capsule clopidogrel 75 mg tablet 75 mg PO QAM #90 tabs 07/09/24 04/03/25 Rx insulin degludec 100 unit/mL (3 40 unit (0.4 mL) subcut QPM 90 07/09/24 04/03/25 Rx mL) subcutaneous pen ( #36 mL FlexTouch U-100 insulin) blood sugar diagnostic #200 ea 11/05/24 Rx fosinopril 10 mg tablet 5 mg (1/2 x 10 mg) PO QAM 90 days 12/12/24 04/03/25 Rx #45 tabs tamsulosin 0.4 mg capsule 0.4 mg PO QAM #90 caps 12/16/24 04/03/25 Rx atorvastatin 40 mg tablet 40 mg PO QAM #90 tabs 01/16/25 04/03/25 Rx carbidopa 25 mg-levodopa 100 mg 1 tab PO TID 03/22/25 04/03/25 History tablet insulin lispro 100 unit/mL 0 unit subcut TID 03/22/25 04/03/25 History subcutaneous pen (Humalog KwikPen (U-100) Insulin) cyanocobalamin (vitamin B-12) 1,000 mcg PO QAM 04/03/25 04/03/25 History 1,000 mcg tablet (Vitamin B-12) Patient History Medical History History of kidney stones Chronic kidney disease (CKD), stage III (moderate) History of hyperparathyroidism Calcium WNL 01/17/24 Urinary incontinence Dependent on walker for ambulation History of prostate cancer 2002--radiation treatment only PAD (peripheral artery disease) - Per cardio records= ABIs suggestive of moderate disease bilaterally and lower extremity arterial duplex suggested possible distal SFA occlusion on the right and possible multilevel disease on the left including inflow, [employer], distal popliteal disease. - Prior claudication symptoms have largely resolved. Hypertension Parkinson's disease follows with Dr. Robby atkinson at 11/2023 appt Cerebrovascular accident 2017--had some drooping on left side/weakness on left side had an "episode" from falling in 02/2023 but per was found not to have a stroke symptoms all due to parkinsons Type 2 diabetes mellitus with kidney complication, with long-term current use of insulin Surgical History History of cystoscopy cystolitholapaxy 11-30-23 @ [facility] Hx of excision of epidermal inclusion cyst (05/21/21) Excision right neck cyst in office 05/21/21 Dr. Locke History of cardiac cath , abn ekg, had angioplasty, no stents placed; f/u dr. diaz, [place] cardio History of cataract surgery rt/lt Family History Family/Other Diabetes Hypertension Sister Kidney disease Other Cancer No family history of adverse response to anesthesia Denies family history of Ovarian cancer Prostate cancer Myocardial infarction Breast cancer Colorectal cancer Social History Smoking Status: Former smoker Tobacco Type: Smokeless Tobacco (Dip or Chew) Age Started Using Tobacco: 22; Age Quit Using Tobacco: 52; packs per day: 1; Second Hand Exposure: No; Do You Dip or Chew Tobacco: Yes; Tobacco Cessation Education Requested by Patient: No Hx Alcohol Use: No Hx Substance Use: No Preferred Language: Bulgarian Communication Ability: Effective Communication Ability Comment: per pt can sign own consents. Visual Impairment: Limited Hearing Ability: Hard of Hearing Manager Heavy Duty Required: No Beliefs That Will Affect Care: None marital status: Current Living Situation: Spouse Current Living Situation Comment: with current occupational status: retired How many Children do You have: 0 Other Information That Helps Us Care for You: No Feels Safe at Home: Yes Safety Concerns: Feels Safe At This Time Childhood Exposure to Second-Hand Smoke: Yes Diet: diabetic and regular caffeine: Yes during the past year weight has: remained stable Dental Care, Regularly: No Physical Activity Frequency: Does not Exercise Seatbelt Use: sometimes Sunscreen Use: No Do you think of yourself as: straight/heterosexual Sexual Activity: has been sexually active, but not for at least 12 months Gender Identity: Male Assistive Devices: Denture - Upper, Denture - Lower, Glasses and Walker Review of Systems Review of Systems: Patient unable to participate in review of symptoms due to status Physical Exam Physical Exam: Resting comfortably in bed, NAD Constitutional: well developed and well nourished; no acute distress Eyes: + anicteric sclerae; pupils not irregula r Respiratory: normal respiratory effort; no respiratory distress, does not use accessory muscles and no cough Cardiovascular: well perfused Gastrointestinal (Abdomen): Inspection/Auscultation: abdomen normal to inspection; abdomen not distended Musculoskeletal: Extremities: extremities normal to inspection Skin: normal turgor; no rashes and no lesions Neurologic: moves all extremities and awake Genitourinary: Marks catheter in place draining clear yellow urine Results & Data Vital Signs (Past 12 Hours) Vital Signs Temp Pulse Pulse Resp BP BP Pulse Ox 04/03/25 15:41 83 04/03/25 15:03 36.9 C 82 169/81 H 96 04/03/25 14:11 79 04/03/25 14:00 81 32 H 145/70 H 98 04/03/25 13:12 85 17 96 04/03/25 13:00 80 37 H 96 04/03/25 13:00 112/59 L 04/03/25 13:00 112/59 L 04/03/25 13:00 112/59 L 04/03/25 12:45 79 19 95 04/03/25 12:30 78 32 H 95 04/03/25 12:12 80 21 93 04/03/25 12:00 123/68 04/03/25 12:00 123/68 04/03/25 11:38 108/75 04/03/25 11:38 108/75 04/03/25 11:00 80 19 109/58 L 97 04/03/25 09:47 89 04/03/25 09:05 37.6 C H 88 18 123/68 97 O2 Del Method 04/03/25 15:41 04/03/25 15:03 Room Air 04/03/25 14:11 04/03/25 14:00 Room Air 04/03/25 13:12 04/03/25 13:00 04/03/25 13:00 04/03/25 13:00 04/03/25 13:00 04/03/25 12:45 04/03/25 12:30 04/03/25 12:12 04/03/25 12:00 04/03/25 12:00 04/03/25 11:38 04/03/25 11:38 04/03/25 11:00 04/03/25 09:47 04/03/25 09:05 Room Air PG Care Time/CCT Total # of Minutes Spent Total Time Spent with Patient: Total time spent is greater than 50% in coordination of care (as documented) at patient's floor/unit and/or counseling patient: Coding Level of Care Code 75253 INT INP/OBS CARE 2/55MIN Diagnoses Catheter-associated urinary tract infection T83.511A; N39.0 Hydronephrosis N13.30
[2025-04-03] MEDS ORDERED: HEPARIN SOD 5,000 UNIT/0.5 ML VIAL SQ SCH (21:00)
[2025-04-03] MEDS: CEFEPIME 2000MG 2,000 MG/20 ML SYR IV SCH (21:20)
[2025-04-04] MEDS ORDERED: Nursing to Pharmacy Communication SCH (03:15)
[2025-04-04 06:09] LABS: Hematocrit (blood only) 31.9 % (42.0-52.0); Hemoglobin 10.2 g/dl (14.0-18.0); Mean Corpuscular Hemoglobin 28.7 pg (25.0-34.0); Mean Corpuscular Volume 89.9 fL (80.0-100.0); Platelet Count 148 K/uL (130-400); RDW Standard Deviation 49.4 fL (36.4-46.3); Red Blood Count 3.55 M/uL (4.70-6.10); White Blood Count 13.59 K/ul (4.8-10.8)
[2025-04-04 06:34] LABS: Anion Gap 8.0 (3-11); Blood Urea Nitrogen 31.0 mg/dl (6-23); Calcium 8.2 mg/dl (8.6-10.3); Carbon Dioxide 23.0 mmol/L (21-32); Chloride 105.0 mmol/L (98-107); Creatinine Clr Calc Pharmacy 42.5 ml/min; Glucose 102.0 mg/dl (70-99(Fasting)); Potassium 3.8 mmol/L (3.5-5.1); Sodium 136.0 mmol/L (136-145)
[2025-04-04] MEDS: INSULIN ASPART PER UNIT CHARGE SC SCH (06:36)
[2025-04-04 07:24] LABS: Hemoglobin A1C 5.9 % (4.5-5.6)
[2025-04-04 07:32] VITALS: RESP 19
[2025-04-04] MEDS: ATORVASTATIN 40 MG TAB PO SCH (08:57)
[2025-04-04] MEDS: CLOPIDOGREL BISULFATE 75 MG TAB PO SCH (08:57)
--- NOTE | 2025-04-04 10:07 | Urology Progress Note ---
<Statement entered by Callum Collazo MD - 04/04/25 12:01> 89-year-old male with left hydronephrosis, admitted with urinary tract infection. Seems to be improving clinically with antibiotics. Leukocytosis decreasing and creatinine is stable. Cultures are pending. Agree with broad- spectrum antibiotics, narrowing coverage as culture data becomes available. Since he seems to be improving, and hydronephrosis has been a stable finding, we will hold off intervention for now. If he starts to worsen, could revisit possible ureteral stent placement. Date of Service April 04, 2025 Assessment & Plan (1) Catheter-associated urinary tract infection: (2) Hydronephrosis: Plan 89-year-old male currently admitted with urinary tract infection, left hydronephrosis seen on CT scan. He is afebrile, hemodynamically stable Labs reviewed-WBCs improved from 1813 today, hemoglobin 10.2, creatinine 1.3 Urine and blood cultures pending He is on cefepime Marks draining appropriately-urine is clear yellow CT abdomen pelvis showing left-sided hydronephrosis which appears stable from prior No plan for acute intervention at this time Continue antibiotics and narrow coverage as culture data becomes available Continue supportive care If patient worsens/fails to progress, we can revisit left ureteral stent placement. Urology will follow along, please contact us with questions/concerns. Admission and Anticipated Discharge Date Admission Date: April 03, 2025 Subjective Pt seen at bedside this AM. Asleep on arrival. Awakened briefly to name. Appears comfortable. No acute distress. at bedside. Marks intact. Review of Systems Constitutional: as per Subjective / HPI Genitourinary: + as per Subjective / HPI Physical Exam Physical Exam: Resting comfortably in bed, NAD Respiratory: no respiratory distress Musculoskeletal: Extremities: extremities normal to inspection Neurologic: Awakened to name Genitourinary: Marks catheter in place draining clear yellow urine Results & Data Vital Signs (Past 12 Hours) Vital Signs Temp Pulse Resp BP Pulse Ox O2 Del Method 04/04/25 07:32 36.8 C 74 19 138/78 94 Room Air 04/04/25 03:20 37.3 C 73 16 134/77 96 Room Air 04/03/25 23:25 36.7 C 75 18 125/75 99 Room Air PG Care Time/CCT Total # of Minutes Spent Total Time Spent with Patient: Total time spent is greater than 50% in coordination of care (as documented) at patient's floor/unit and/or counseling patient: Coding Level of Care Code 08193 SUB INP/OBS CARE 2MIN Diagnoses Catheter-associated urinary tract infection T83.511A; N39.0 Hydronephrosis N13.30
[2025-04-04 11:45] VITALS: BP 128/75; TEMP 97.3; O2SAT 98
--- NOTE | 2025-04-04 12:37 | XCELERA ---
[id number]
--- NOTE | 2025-04-04 14:48 | Communication Note ---
Date of Service: April 04, 2025 By CMS guidelines, a determination that the admission or continued stay is not medically necessary has been made by a member of the UR committee and a phys ician for this hospital stay, therefore a Code 44 will be completed and the Inpatient admission will be changed to outpatient.
[2025-04-04 15:09] VITALS: PULSE 71
--- NOTE | 2025-04-04 19:00 | Discharge Summary ---
Discharge Summary Date of Service April 04, 2025 Principal Dx & Hospital Course #1 = Principal Diagnosis (1) Sepsis: (2) Catheter-associated urinary tract infection: (3) Encephalopathy acute: (4) Elevated troponin: (5) Type 2 diabetes mellitus with kidney complication, with long-term current use of insulin: Plan 89-year-old man with CKD, AAA, CAD, BPH with urinary retention and chronic urethral catheter, Parkinsonism, memory impairment and prior CVA with residual deficits including weakness and facial droop. Admitted with sepsis and acute encephalopathy probably related to CAUTI. Was on augmentin po within 48h of illness, however, for recent bacteriuria or CAUTI with pansensitive E. coli. Small infiltrate in L base and pneumonia or pneumonitis vs atelectasis possible, however, no cough/hypoxia, procalcitonin normal so probably atelectasis. He improved unexpectedly rapidly with resolution of sepsis and encephalopathy over night after treatment with IV fluids and cefepime. He was at his cognitive baseline and baseline physical status and his wished to take him home as soon as possible because of trouble with severe delirium and deconditioning during previous hospitalizations. She declined PT because it has not been helpful in the past. He did well transferring to chair. Blood and urine cultures still pending at discharge. # sepsis due to probable CAUTI. Chronic ramirez catheter. Complex underlying urological problems including remote prostate cancer s/p XRT, incomplete voiding, bladder stones -CT KUB with no stones, left sided hydroureteronephrosis, consulted urology and discussed with Dr. Collazo - this finding has been stable for several years, weighing risk:benefit holding off on cystoscopy/stenting -cefepime then changed to cefuroxime x total 14d for discharge -dose of doxy in ED for possible L base pneumonia, however, I think pneumonia unlikely since he has no cough/hypoxia, procalcitonin normal, and possible infiltrate/atelectasis is minimal on CXR. Monitor. -follow up urine and blood cultures #Acute metabolic encephalopathy - caused by infection #Dehydration -resolved #Myocardial demand ischemia due to sepsis - HS-troponin - peaked 400s and downtrended -reassuring stress test 2 years ago. some possible mild apical ischemia, normal EF -did not have chest pain or dyspnea -no ischemic EKG changes -TTE very normal for his age with normal LVEF, no rwma's, mild concentric LVH and mild MR #CKD-3 - Cr remained at baseline -continue SAHIL #DM type 2 -continue short acting / premeal insulin #Parkinsonism - stable -cont carbidopa/levodopa #History of stroke with residual L sided weakness and facial droop #CAD with remote PCI in #PAD -cont statin and plavix Notes For Next Care Provider blood and urine cultures pending Medication Changes From Visit cefuroxime 500 mg po bid - 14 day course Admission HPI Per Admitting Provider 89-year-old man with CKD, AAA, CAD, BPH with urinary retention and chronic urethral catheter, Parkinsonism, memory impairment and prior CVA with residual deficits including weakness and facial droop. Brought in by ambulance with weakness and lethargy. Cannot provide history due to lethargy, history obtained from his at bedside. He was seen in ED 03/22 for catheter dislodgement, treated with augmentin x 7d for amado-sensitive E. coli in urine. Finished ABX Monday (48h ago). Yesterday slept all day, which is not necessarily unusual, this AM lethargic and weak with temp 103. He's able to answer yes/no questions about symptoms, denies cough, chest pain, dyspnea, abdominal pain, N/V/D, suprapubic or flank pain. He has a sacral red spot but not open. According to his he usually walks with walker, talks, oriented to situation. He has a lot of falls and Parkinsonian tremors getting worse recently Discharge Exam Last 24h vitals reviewed GEN: elderly and frail awake and alert in bed HEENT: pupils equal, sclerae anicteric, moist MM RESP: normal WOB, CTAB CV: reg no mrg distant ABD: soft/nt/nd +BT : ramirez SKIN: warm and dry, no generalized rashes EXT: no LE edema, wwp NEURO: AO x person place and basic situation which is his baseline. R facial droop. R side weaker. Rest tremor RUE Discharge Plan Discharge Items Patient Disposition: Home - Self-Care Reason For Visit: UTI, SEPSIS Discharge Diagnosis: Sepsis due to acute pyelonephritis Condition on Discharge: Fair Activity: Resume your previous activity Non-emergency contact: Primary Care Provider Call non-emergency contact if: you have any medication questions, your symptoms worsen and you have a fever Follow-up/Referrals: Keith Yung DO [Primary Care Provider] - (You have a hospital follow-up scheduled: 04/09/2025 @ 10:00 AM with SAMUEL Adame at [facility]) Callum Collazo MD [Physician] - (Office will contact patient to schedule. ) Diet: Regular Addtl Attending Provider Instructions: You were treated for presumed persistent/recurrent UTI Urine and blood cultures are still pending - if blood cultures turn positive or if urine culture results with a resistant bacteria, we may have to call you back for more IV antibiotics The E. coli from your urine last week is sensitive to all common antibiotics We will try treating for another 14 days with a different antibiotic Its possible you have a mild L base pneumonia - this antibiotic will cover pneumonia as well Your heart Echo was perfect - normal squeeze and mildly leaky mitral valve. No evidence of heart attack / primary heart issue. It was a pleasure taking care of you in the hospital, Rita Mock MD Pending Studies at Discharge: Yes Stand-Alone Forms: My [facility] D[employer], Smoking Cessation Medications and DC Order Prescriptions: New cefuroxime axetil 500 mg Tablet 500 mg PO BID Qty: 26 0RF Continued clopidogrel 75 mg tablet 75 mg PO QAM Qty: 90 3RF insulin degludec [Tresiba FlexTouch U-100] 100 unit/mL (3 mL) insulin pen 40 unit subcut QPM 90 Days Qty: 36 3RF fosinopril 10 mg tablet 5 mg PO QAM 90 Days Qty: 45 3RF tamsulosin 0.4 mg capsule 0.4 mg PO QAM Qty: 90 3RF atorvastatin 40 mg tablet 40 mg PO QAM Qty: 90 3RF calcium carbonate [Calcium 600] 600 mg calcium (1,500 mg) tablet 600 mg PO QAM Patient Comments: Unable to verify OTC meds at this date/time. cholecalciferol (vitamin D3) 25 mcg (1,000 unit) capsule 25 mcg PO DAILY Patient Comments: Unable to verify OTC meds at this date/time. vitamin B complex Tablet 1 tab PO QAM Patient Comments: Unable to verify OTC meds at this date/time. One A Day Men Complete 240-25-300 mcg Tablet 1 tab PO QAM Patient Comments: Unable to verify OTC meds at this date/time. carbidopa-levodopa 25-100 mg tablet 1 tab PO TID Rx Instructions: TAKE 1 TABLET BY MOUTH THREE TIMES DAILY insulin lispro [Humalog KwikPen Insulin] 100 unit/mL insulin pen 0 unit SQ TID Patient Comments: Last filled 11/2023 x90 day supply. Unable to verify if pt still taking or not. Original Directions: 20units-25units TID as directed - 04/03/25 cyanocobalamin (vitamin B-12) [Vitamin B-12] 1,000 mcg Tablet 1,000 mcg PO QAM No Action (DME) lancets [OneTouch Delica Lancets] 30 gauge misc See Rx Instructions .Route Qty: 100 11RF Rx Instructions: Test three times daily (DME) pen needle, diabetic [BD Ultra-Fine Short Pen Needle] 31 gauge x 5/16" needle See Dose Instructions .ROUTE .MEDSUPPLY Qty: 200 3RF Rx Instructions: Use with insulin pen twice daily Dx:E11.9 (DME) blood sugar diagnostic Strip See Dose Instructions .ROUTE .MEDSUPPLY Qty: 200 11RF Rx Instructions: USE ONE STRIP TO CHECK GLUCOSE 3 TIMES DAILY E11.9 (DME) blood-glucose meter [OneTouch Ultra2 Meter] misc See Dose Instructions .ROUTE .MEDSUPPLY Qty: 1 Rx Instructions: As directed (DME) BD Luer-Frank Syringe 3 mL 25 x 5/8" syringe See Rx Instructions .Route Qty: 6 0RF Rx Instructions: Use with Vitamin B12 injectable solution Discharge Orders: Discharge Order (Routine); Ordered 04/04/25 Ordered By: Rita Mock Admission Data Admit Date/Time: 04/03/25 12:11 Attending Provider: Rita Mock Admit Provider: Rita Mock Primary Care Provider: Keith Yung Other Providers: Rita Mock; Callum Collazo Other Interventions: Discharge Summary Assessment (RN) Last Done: 04/04/25 15:07 Hospital Stay Data Consultations 04/03/25 11:48 ED Decision to Admit Stat 04/03/25 16:40 Consult Urology Routine Diagnostic Imagining Performed 04/03/25 15:28 CT abd pelvis wo con Stat Pending Results Patient Have Any Pending Studies at Discharge: Yes Discharge Instructions Given to Patient (Per Discharging Provider) You were treated for presumed persistent/recurrent UTI Urine and blood cultures are still pending - if blood cultures turn positive or if urine culture results with a resistant bacteria, we may have to call you back for more IV antibiotics The E. coli from your urine last week is sensitive to all common antibiotics We will try treating for another 14 days with a different antibiotic Its possible you have a mild L base pneumonia - this antibiotic will cover pneumonia as well Your heart Echo was perfect - normal squeeze and mildly leaky mitral valve. No evidence of heart attack / primary heart issue. It was a pleasure taking care of you in the hospital, Rita Mock MD Total Time Total Time Spent Total Time Spent (In Minutes): I personally spent: 40 minutes today on clinical care activities including: reviewing chart notes and vital signs reviewing labs reviewing studies discussion with data migration consultant(s) examining and counseling the patient counseling the patient's family writing orders writing prescriptions, discharge instructions documentation Coding Level of Care Code 25822 INP/OBS DISCH >30 MIN Diagnoses Sepsis A41.9 Catheter-associated urinary tract infection T83.511A; N39.0 Encephalopathy acute G93.40 Elevated troponin R79.89 Type 2 diabetes mellitus with kidney complication, with long-term current use of insulin E11.29; Z79.4
--- NOTE | 2025-04-05 18:13 | Communication Note ---
Date of Service: April 05, 2025 Urine culture grew Pseudomonas and Klebsiella. (previous one was E. coli) the pseudomonas is sensitive to ciprofloxacin (as is the klebs) was on cefepime in hospital which covers these stop cefuroxime and change to cipro 500 mg po bid for rest of 14d course Sent Rx to pharmacy Called for his Roselia at midday and this evening - left voicemails
== END 2025-04-04 17:20 | disposition home or self-care (01) | DRG 698 ==
LOC: SUATTDRO → ED 09:05 → INTOOBSV 12:11 → 4W 12:11